=== PATIENT | male | born 1980 | race Caucasian/White ===

== ENCOUNTER 2016-10-11 21:42 | Emergency (ER) | payer MEDICARE ==
[2016-10-11] MEDS ORDERED: SODIUM CHLORIDE 0.9% 1,000 ML IV STA ×2 (21:48→23:03)
[2016-10-11 21:52] VITALS: TEMP 98.7
[2016-10-11 21:59] VITALS: PULSE 97; RESP 18
--- NOTE | 2016-10-11 21:59 | ED ---
Overdose HPI - General Chief Complaint: Overdose Stated Complaint: Overdose Time Seen by Provider: 10/11/16 21:42 Source: patient, police, EMS, RN notes reviewed Mode of arrival: EMS Limitations: no limitations - History of Present Illness Initial Comments: This is a 36-year-old male with a history of prescription drug abuse who normally inhales the medication that he crushes up into his nose who apparently did the same thing tonight with an unknown medication he was found unresponsive and cyanotic at neck. He was resuscitated IV was given the patient was given a total of 6 mg of Narcan and he did finally wake up. Initially was normotensive found be hypertensive shortly after the Narcan was given. He complains of a headache and nausea vomiting. He states she's never had a reaction like this before was not intentional. He denies using any heroin. He was brought in for evaluation by EMS. MD Complaint: accidental overdose - Related Data Home Medications Medication Instructions Recorded Confirmed QUEtiapine FUMARATE [SEROquel] 100 mg PO DAILY 10/11/16 10/11/16 carBAMazepine [carBAMazepine ER] 100 mg PO DAILY 10/11/16 10/11/16 Allergies Allergy/AdvReac Type Severity Reaction Status Date / Time ziprasidone HCl [From Geodon] AdvReac Unknown Verified 10/11/16 21:52 ziprasidone mesylate AdvReac Unknown Verified 10/11/16 21:52 [From Geodon] Review of Systems ROS Statement: Those systems with pertinent positive or pertinent negative responses have been documented in the HPI. ROS Other: All systems not noted in ROS Statement are negative. Past Medical History Past Medical History: No Reported History Additional Past Medical History / Comment(s): Schizoaffective disorder, bipolar; History of Any Multi-Drug Resistant Organisms: None Reported Past Surgical History: No Surgical Hx Reported Additional Past Surgical History / Comment(s): UNABLE TO OBTAIN, PT NONRESPONSIVE Past Psychological History: Bipolar, Depression, PTSD, Schizoaffective Disorder Smoking Status: Current every day smoker Past Alcohol Use History: Abuse Additional Past Alcohol Use History / Comment(s): Patient is a smoker of one pack per day since he was 20 years of age. He states he uses marijuana every other day. He also uses heroin because his uses heroin. He states he snorted and does not use IV. He also admits to drinking 3 pops or 3 large coffees per day. His also been in and out of long-term. He does not have any children. Past Drug Use History: Marijuana, Opiates Additional Drug Use History / Comment(s): marijuana - Past Family History Father Additional Family Medical History / Comment(s): Father is alive at age 58 with no major medical problems. Mother Additional Family Medical History / Comment(s): Mother is alive in her early 60s with history of paranoid schizophrenia. Brother(s) Additional Family Medical History / Comment(s): He has 5 brothers and one is in snf. He does not know their medical problems. Sister(s) Additional Family Medical History / Comment(s): Patient has 2 stepsisters and one adopted sister. He does not have any children. General Exam - General Exam Comments Initial Comments: This is a well-developed well-nourished awake alert male who was vomiting upon arrival. Limitations: no limitations General appearance: alert, anxious, in distress Head exam: Present: atraumatic, normocephalic, normal inspection Eye exam: Present: normal appearance, PERRL, EOMI. Absent: scleral icterus, conjunctival injection, periorbital swelling ENT exam: Present: mucous membranes moist, other (Nasal mucosa is boggy with clear drainage noted. No evidence of any bleeding.) Neck exam: Present: normal inspection. Absent: tenderness, meningismus, lymphadenopathy Respiratory exam: Present: normal lung sounds bilaterally. Absent: respiratory distress, wheezes, rales, rhonchi, stridor Cardiovascular Exam: Present: regular rate, normal rhythm, normal heart sounds. Absent: systolic murmur, diastolic murmur, rubs, gallop, clicks GI/Abdominal exam: Present: soft, normal bowel sounds. Absent: distended, tenderness, guarding, rebound, rigid Extremities exam: Present: normal inspection, full ROM, normal capillary refill. Absent: tenderness, pedal edema, joint swelling, calf tenderness Back exam: Present: normal inspection Neurological exam: Present: alert, oriented X3, CN II-XII intact Psychiatric exam: Present: anxious Skin exam: Present: warm, intact, normal color, diaphoretic. Absent: rash Course Vital Signs 10/11/16 10/11/16 21:48 21:52 Temperature 98.7 F Pulse Rate 90 97 Respiratory 20 18 Rate Blood Pressure 126/82 O2 Sat by Pulse 94 L 95 Oximetry Medical Decision Making - Medical Decision Making I did a long discussion with patient regarding the findings and the need to stop smoking we 3.2 minute conversation regarding the risks of smoking. Also the risks of drug abuse and narcotic abuse. The patient was apneic and cyanotic upon discovery by EMS. Patient will be discharged after IV fluids. He also does state that he was drinking alcohol recently. He was cautioned to avoid that - Lab Data Result diagrams: 10/11/16 21:55 10/11/16 21:55 Lab Results 10/11/16 10/11/16 10/11/16 Range/Units 21:55 21:55 21:55 WBC 8.5 (3.8-10.6) k/uL RBC 4.79 (4.30-5.90) m/uL Hgb 14.2 (13.0-17.5) gm/dL Hct 44.3 (39.0-53.0) % MCV 92.5 (80.0-100.0) fL MCH 29.7 (25.0-35.0) pg MCHC 32.1 (31.0-37.0) g/dL RDW 12.6 (11.5-15.5) % Plt Count 231 (150-450) k/uL Neutrophils % 69 % Lymphocytes % 24 % Monocytes % 5 % Eosinophils % 1 % Basophils % 0 % Neutrophils # 5.9 (1.3-7.7) k/uL Lymphocytes # 2.0 (1.0-4.8) k/uL Monocytes # 0.4 (0-1.0) k/uL Eosinophils # 0.1 (0-0.7) k/uL Basophils # 0.0 (0-0.2) k/uL Sodium 140 (137-145) mmol/L Potassium 4.4 (3.5-5.1) mmol/L Chloride 101 (98-107) mmol/L Carbon Dioxide 23 (22-30) mmol/L Anion Gap 16 mmol/L BUN 14 (9-20) mg/dL Creatinine 0.82 (0.66-1.25) mg/dL Est GFR (MDRD) Af Amer >60 (>60 ml/min/1.73 sqM) Est GFR (MDRD) Non-Af >60 (>60 ml/min/1.73 sqM) Glucose 170 H (74-99) mg/dL Calcium 8.9 (8.4-10.2) mg/dL Magnesium 1.9 (1.6-2.3) mg/dL Total Bilirubin 0.5 (0.2-1.3) mg/dL AST 23 (17-59) U/L ALT 47 (21-72) U/L Alkaline Phosphatase 74 (38-126) U/L Total Creatine Kinase 101 (55-170) U/L CK-MB (CK-2) 0.5 (0.0-2.4) ng/mL CK-MB (CK-2) Rel Index 0.5 Troponin I <0.012 (0.000-0.034) ng/mL Total Protein 7.1 (6.3-8.2) g/dL Albumin 4.4 (3.5-5.0) g/dL Amylase 90 (30-110) U/L Lipase 816 H (23-300) U/L Salicylates <1.0 mg/dL Urine Opiates Screen (NotDetected) Ur Oxycodone Screen (NotDetected) Urine Methadone Screen (NotDetected) Ur Propoxyphene Screen (NotDetected) Acetaminophen <10.0 ug/mL Ur Barbiturates Screen (NotDetected) U Tricyclic Antidepress (NotDetected) Ur Phencyclidine Scrn (NotDetected) Ur Amphetamines Screen (NotDetected) U Methamphetamines Scrn (NotDetected) U Benzodiazepines Scrn (NotDetected) Urine Cocaine Screen (NotDetected) U Marijuana (THC) Screen (NotDetected) Serum Alcohol <10 mg/dL 10/11/16 Range/Units 22:00 WBC (3.8-10.6) k/uL RBC (4.30-5.90) m/uL Hgb (13.0-17.5) gm/dL Hct (39.0-53.0) % MCV (80.0-100.0) fL MCH (25.0-35.0) pg MCHC (31.0-37.0) g/dL RDW (11.5-15.5) % Plt Count (150-450) k/uL Neutrophils % % Lymphocytes % % Monocytes % % Eosinophils % % Basophils % % Neutrophils # (1.3-7.7) k/uL Lymphocytes # (1.0-4.8) k/uL Monocytes # (0-1.0) k/uL Eosinophils # (0-0.7) k/uL Basophils # (0-0.2) k/uL Sodium (137-145) mmol/L Potassium (3.5-5.1) mmol/L Chloride (98-107) mmol/L Carbon Dioxide (22-30) mmol/L Anion Gap mmol/L BUN (9-20) mg/dL Creatinine (0.66-1.25) mg/dL Est GFR (MDRD) Af Amer (>60 ml/min/1.73 sqM) Est GFR (MDRD) Non-Af (>60 ml/min/1.73 sqM) Glucose (74-99) mg/dL Calcium (8.4-10.2) mg/dL Magnesium (1.6-2.3) mg/dL Total Bilirubin (0.2-1.3) mg/dL AST (17-59) U/L ALT (21-72) U/L Alkaline Phosphatase (38-126) U/L Total Creatine Kinase (55-170) U/L CK-MB (CK-2) (0.0-2.4) ng/mL CK-MB (CK-2) Rel Index Troponin I (0.000-0.034) ng/mL Total Protein (6.3-8.2) g/dL Albumin (3.5-5.0) g/dL Amylase (30-110) U/L Lipase (23-300) U/L Salicylates mg/dL Urine Opiates Screen Detected H (NotDetected) Ur Oxycodone Screen Not Detected (NotDetected) Urine Methadone Screen Not Detected (NotDetected) Ur Propoxyphene Screen Not Detected (NotDetected) Acetaminophen ug/mL Ur Barbiturates Screen Not Detected (NotDetected) U Tricyclic Antidepress Not Detected (NotDetected) Ur Phencyclidine Scrn Not Detected (NotDetected) Ur Amphetamines Screen Not Detected (NotDetected) U Methamphetamines Scrn Not Detected (NotDetected) U Benzodiazepines Scrn Not Detected (NotDetected) Urine Cocaine Screen Not Detected (NotDetected) U Marijuana (THC) Screen Detected H (NotDetected) Serum Alcohol mg/dL - EKG Data -: EKG Interpreted by Me EKG shows normal: sinus rhythm, axis, intervals, QRS complexes, ST-T waves (EKG shows normal sinus rhythm of 91 a IN interval 138 QRS duration 82 daily since QTC of 356/[address]-T wave changes.) Rate: normal - Radiology Data Radiology results: report reviewed (X-ray show evidence of some increased markings no focal consolidations), image reviewed Disposition Clinical Impression: Drug overdose, Narcotic abuse, Smoking, Pancreatitis, Near- experience Disposition: HOME SELF-CARE Condition: Good Instructions: Narcotic Abuse (ED), How to Stop Smoking (ED), Pancreatitis (ED) Additional Instructions: Stop narcotic use stop smoking and stop alcohol use.
[2016-10-11 22:05] LABS: Basophils % (A) 0 %; CH 30.9; CHCM 33.6; Eosinophils # (A) 0.1 k/uL (0-0.7); Eosinophils % (A) 1 %; HCT 44.3 % (39.0-53.0); HDW 2.57; HGB 14.2 gm/dL (13.0-17.5); Luc # (Auto) 0.12; Luc % (Auto) 1; Lymphocytes % (A) 24 %; MCH 29.7 pg (25.0-35.0); MCHC 32.1 g/dL (31.0-37.0); MCV 92.5 fL (80.0-100.0); Mean Platelet Volume 7.1; Monocytes # (A) 0.4 k/uL (0-1.0); Monocytes % (A) 5 %; Neutrophils # (A) 5.9 k/uL (1.3-7.7); Neutrophils % (A) 69 %; RBC 4.79 m/uL (4.30-5.90); RDW 12.6 % (11.5-15.5); WBC 8.5 k/uL (3.8-10.6); WBC (Perox) 8.32
[2016-10-11 22:16] LABS: ALT 47 U/L (21-72); AST 23 U/L (17-59); Acetaminophen <10.0 ug/mL; Alcohol <10 mg/dL; Alkaline Phosphatase 74 U/L (38-126); Amylase 90 U/L (30-110); Anion Gap 16 mmol/L; Blood Urea Nitrogen 14 mg/dL (9-20); Calcium 8.9 mg/dL (8.4-10.2); Carbon Dioxide 23 mmol/L (22-30); Chloride 101 mmol/L (98-107); Glucose 170 mg/dL (74-99); Magnesium 1.9 mg/dL (1.6-2.3); Non-African American GFR(MDRD) >60 (>60 ml/min/1.73 sqM); Potassium 4.4 mmol/L (3.5-5.1); Salicylate <1.0 mg/dL; Sodium 140 mmol/L (137-145); Total Bilirubin 0.5 mg/dL (0.2-1.3); Total Protein 7.1 g/dL (6.3-8.2)
--- NOTE | 2016-10-11 22:19 | XR ---
EXAMINATION TYPE: XR chest 2V DATE OF EXAM: 10/11/2016 10:12 PM COMPARISON: 02/10/2014 HISTORY: Cough and short of breath TECHNIQUE: Frontal and lateral views of the chest are obtained. FINDINGS: There is no heart failure nor confluent pneumonic infiltrate. There is slight coarsening o f interstitial markings. There are no hilar masses. There are probably small calcified granulomata at the pulmonary yessenia. There is no pleural effusion. IMPRESSION: Lung markings are increased slightly compared to old exam and this could relate to minim al interstitial pneumonia. No pulmonary consolidation.
[2016-10-11 22:32] LABS: Creatine Kinase 101 U/L (55-170)
[2016-10-11 22:44] LABS: Creatine Kinase MB 0.5 ng/mL (0.0-2.4); Troponin I <0.012 ng/mL (0.000-0.034)
[2016-10-11 23:41] VITALS: BP 126/72
== END 2016-10-12 00:21 | disposition home or self-care (01) ==
LOC: EC 21:42
DX: T50.901A Poisoning by unspecified drugs, medicaments and biological substances, accidental (unintentional), initial encounter (principal); F11.10 Opioid abuse, uncomplicated; F12.90 Cannabis use, unspecified, uncomplicated; K85.90 Acute pancreatitis without necrosis or infection, unspecified; F17.200 Nicotine dependence, unspecified, uncomplicated; Z88.8 Allergy status to other drugs, medicaments and biological substances; F31.9 Bipolar disorder, unspecified; F25.9 Schizoaffective disorder, unspecified
CPT/HCPCS: 36415; 71020; 80053; 80306; 80320; 82150; 82550; 82553; 83520; 83690; 83735; 84484; 85025; 93005; 96360; 96361; 99284

== ENCOUNTER 2016-12-15 03:45 | Emergency (ER) | payer SELFPAY ==
[2016-12-15 03:50] VITALS: BP 126/87; PULSE 95; RESP 18; TEMP 96.3
[2016-12-15] MEDS ORDERED: PALIPERIDONE 6 MG TAB.ER.24 PO STA (03:58)
--- NOTE | 2016-12-15 04:23 | ED ---
Psych HPI - General Chief Complaint: Recheck/Abnormal Lab/Rx Stated Complaint: med refill Time Seen by Provider: 12/15/16 03:58 Source: patient Mode of arrival: ambulatory - History of Present Illness Initial Comments: This patient is a 36-year-old man with history of previous mood disorder. He states that his symptoms have been flaring up, including having anxiety and not being able sleep well. Patient states that he had not been able to get his medications as an outpatient and he is requesting help much receive these. MD Complaint: other (Anxiety and insomnia) -: days(s) Associated Psychiatric Symptoms: racing thoughts History of same: Yes Quality: constant Improves With: none Worsens With: none Context: not taking psychiatric medications Associated Symptoms: denies other symptoms - Related Data Home Medications Medication Instructions Recorded Confirmed Ibuprofen [Motrin] 800 mg PO DAILY PRN 12/28/16 12/28/16 Allergies Allergy/AdvReac Type Severity Reaction Status Date / Time ziprasidone HCl [From Twineddon] AdvReac Unknown Verified 12/23/16 07:39 ziprasidone mesylate AdvReac Unknown Verified 12/23/16 07:39 [From Twineddon] Review of Systems ROS Statement: Those systems with pertinent positive or pertinent negative responses have been documented in the HPI. ROS Other: All systems not noted in ROS Statement are negative. Constitutional: Denies: fever, chills, weakness Eyes: Denies: vision change Respiratory: Denies: cough, dyspnea Cardiovascular: Denies: chest pain Gastrointestinal: Denies: abdominal pain, nausea, vomiting Musculoskeletal: Denies: back pain Skin: Denies: rash Neurological: Denies: headache Psychiatric: Reports: anxiety. Denies: depression, homicidal thoughts, suicidal thoughts Past Medical History Past Medical History: No Reported History Additional Past Medical History / Comment(s): Schizoaffective disorder, bipolar; History of Any Multi-Drug Resistant Organisms: None Reported Past Surgical History: No Surgical Hx Reported Additional Past Surgical History / Comment(s): UNABLE TO OBTAIN, PT NONRESPONSIVE Past Psychological History: Bipolar, Depression, PTSD, Schizoaffective Disorder Smoking Status: Current every day smoker Past Alcohol Use History: Abuse Additional Past Alcohol Use History / Comment(s): Patient is a smoker of one pack per day since he was 20 years of age. He states he uses marijuana every other day. He also uses heroin because his uses heroin. He states he snorted and does not use IV. He also admits to drinking 3 pops or 3 large coffees per day. His also been in and out of shelter. He does not have any children. Past Drug Use History: Marijuana, Opiates Additional Drug Use History / Comment(s): marijuana - Past Family History Father Additional Family Medical History / Comment(s): Father is alive at age 58 with no major medical problems. Mother Additional Family Medical History / Comment(s): Mother is alive in her early 60s with history of paranoid schizophrenia. Brother(s) Additional Family Medical History / Comment(s): He has 5 brothers and one is in retirement. He does not know their medical problems. Sister(s) Additional Family Medical History / Comment(s): Patient has 2 stepsisters and one adopted sister. He does not have any children. General Exam Limitations: no limitations General appearance: alert, in no apparent distress Head exam: Present: atraumatic, normocephalic Respiratory exam: Present: normal lung sounds bilaterally. Absent: respiratory distress, wheezes, rales, rhonchi Cardiovascular Exam: Present: regular rate, normal rhythm, normal heart sounds. Absent: systolic murmur, diastolic murmur, rubs, gallop Neurological exam: Present: alert, normal gait Psychiatric exam: Present: anxious. Absent: depressed, agitated, flat affect, homicidal ideation, suicidal ideation Skin exam: Present: warm, dry, intact, normal color. Absent: rash Course Vital Signs 12/15/16 03:48 Temperature 96.3 F L Pulse Rate 95 Respiratory 18 Rate Blood Pressure 126/87 O2 Sat by Pulse 98 Oximetry Disposition Clinical Impression: Encounter for medication refill Disposition: HOME SELF-CARE Condition: Fair Instructions: Mood Disorders (ED) Referrals: Nonstaff,Physician [Primary Care Provider] - 1-2 days Olaf Orantes MD [STAFF PHYSICIAN] - 1-2 days
== END 2016-12-15 04:27 | disposition home or self-care (01) ==
LOC: EC 03:45
DX: Z76.0 Encounter for issue of repeat prescription (principal); F17.200 Nicotine dependence, unspecified, uncomplicated; Z88.8 Allergy status to other drugs, medicaments and biological substances
CPT/HCPCS: 99281

== ENCOUNTER 2016-12-17 07:47 | Emergency (ER) | payer SELFPAY ==
[2016-12-17 08:01] VITALS: BP 131/78; PULSE 92; RESP 20; TEMP 98.1
[2016-12-17] MEDS ORDERED: PALIPERIDONE 6 MG TAB.ER.24 PO STA (09:13)
[2016-12-17] MEDS ORDERED: LORazepam 1 MG TAB PO STA (09:13)
--- NOTE | 2016-12-17 09:24 | ED ---
General Adult HPI - General Chief complaint: Recheck/Abnormal Lab/Rx Stated complaint: med refill Time Seen by Provider: 12/17/16 08:08 Source: patient, RN notes reviewed Mode of arrival: ambulatory - History of Present Illness Initial comments: Patient 36-year-old male with a significant past medical history for bipolar, who presents emergency room today with chief complaint of needing medication refill. Patient does admit that he was recently discharged from [facility]. He does admit that he did drop medications off at the pharmacy but has not picked him up. He states he's been trying to go to work clinic that has the Invega shot. He states that he [facility] did not have. They're advised him to go downtown [place]. He states he did not have a ride to go there. Patient states is not get the medications filled. Patient also requesting a prescription for Haldol. States he would like Ativan for his anxiety. Patient denies any other complaints. Patient denies any recent fever, chills, shortness of breath, chest pain, back pain, abdominal pain, nausea or vomiting, numbness or tingling, dysuria or hematuria, constipation or diarrhea, headaches or visual changes, or any other complaints. - Related Data Previous Rx's Medication Instructions Recorded Melatonin 5 mg PO HS 30 Days 12/09/16 Paliperidone IM [Invega Sustenna] 156 mg IM ONCE #1 syr 12/09/16 Paliperidone [Invega] 6 mg PO DAILY 7 Days 12/09/16 traZODone HCL [Desyrel] 50 mg PO HS PRN 30 Days 12/09/16 Allergies Allergy/AdvReac Type Severity Reaction Status Date / Time ziprasidone HCl [From Geodon] AdvReac Unknown Verified 12/15/16 03:50 ziprasidone mesylate AdvReac Unknown Verified 12/15/16 03:50 [From Geodon] Review of Systems ROS Statement: Those systems with pertinent positive or pertinent negative responses have been documented in the HPI. ROS Other: All systems not noted in ROS Statement are negative. Past Medical History Past Medical History: No Reported History Additional Past Medical History / Comment(s): Schizoaffective disorder, bipolar; History of Any Multi-Drug Resistant Organisms: None Reported Past Surgical History: No Surgical Hx Reported Additional Past Surgical History / Comment(s): UNABLE TO OBTAIN, PT NONRESPONSIVE Past Psychological History: Bipolar, Depression, PTSD, Schizoaffective Disorder Smoking Status: Current every day smoker Past Alcohol Use History: Abuse Additional Past Alcohol Use History / Comment(s): Patient is a smoker of one pack per day since he was 20 years of age. He states he uses marijuana every other day. He also uses heroin because his uses heroin. He states he snorted and does not use IV. He also admits to drinking 3 pops or 3 large coffees per day. His also been in and out of alf. He does not have any children. Past Drug Use History: Marijuana, Opiates Additional Drug Use History / Comment(s): marijuana - Past Family History Father Additional Family Medical History / Comment(s): Father is alive at age 58 with no major medical problems. Mother Additional Family Medical History / Comment(s): Mother is alive in her early 60s with history of paranoid schizophrenia. Brother(s) Additional Family Medical History / Comment(s): He has 5 brothers and one is in shelter. He does not know their medical problems. Sister(s) Additional Family Medical History / Comment(s): Patient has 2 stepsisters and one adopted sister. He does not have any children. General Exam - General Exam Comments Initial Comments: General: The patient is awake and alert, in no distress, and does not appear acutely ill. Eye: Pupils are equal, round and reactive to light, extra-ocular movements are intact. No nystagmus. There is normal conjunctiva bilaterally. No signs of icterus. Ears, nose, mouth and throat: There are moist mucous membranes and no oral lesions. Neck: The neck is supple, there is no tenderness or JVD. Cardiovascular: There is a regular rate and rhythm. No murmur, rub or gallop is appreciated. Respiratory: Lungs are clear to auscultation, respirations are non-labored, breath sounds are equal. No wheezes, stridor, rales, or rhonchi. Musculoskeletal: Normal ROM, no tenderness. Strength 5/5. Sensation intact. Pulses equal bilaterally 2+. Neurological: A&O x 3. CN II-XII intact, There are no obvious motor or sensory deficits. Coordination appears grossly intact. Speech is normal. Skin: Skin is warm and dry and no rashes or lesions are noted. Psychiatric: Cooperative, appropriate mood & affect, normal judgment. Course Vital Signs 12/17/16 07:53 Temperature 98.1 F Pulse Rate 92 Respiratory 20 Rate Blood Pressure 131/78 O2 Sat by Pulse 98 Oximetry Medical Decision Making - Medical Decision Making Patient's recent visit was reviewed and he was discharged home with him melatonin, trazodone, Invega. Patient states he has medications at the pharmacy but did not come up. He states he thought he needed prescriptions for Haldol with Cogentin. Patient was not discharged home with these. At this time patient's advised follow-up with mental health for any other medications. Will be given a dose of his Invega here in the ER. He states he has a prescription. Patient advised follow-up with mental health. Disposition Clinical Impression: Medication refill Disposition: HOME SELF-CARE Condition: Good Instructions: Medicine Refill (ED) Additional Instructions: [facility] follow-[facility] Please return to emergency room if any symptoms increase worsen or for any other concerns. Time of Disposition: 09:23
== END 2016-12-17 09:33 | disposition home or self-care (01) ==
LOC: EC 07:47
DX: Z76.0 Encounter for issue of repeat prescription (principal); F31.9 Bipolar disorder, unspecified; F41.9 Anxiety disorder, unspecified; F17.200 Nicotine dependence, unspecified, uncomplicated; Z88.8 Allergy status to other drugs, medicaments and biological substances
CPT/HCPCS: 99282

== ENCOUNTER 2016-12-20 00:26 | Emergency (ER) | payer SELFPAY ==
[2016-12-20 01:03] VITALS: BP 140/73; PULSE 110; RESP 18; TEMP 97
[2016-12-20] MEDS ORDERED: IBUPROFEN 600 MG STARTER PACK 4 TAB BTL PO STA (04:16)
[2016-12-20] MEDS ORDERED: ACETAMINOPHEN TAB 500 MG TAB PO STA (04:16)
--- NOTE | 2016-12-20 04:18 | ED ---
Recheck HPI - General Chief Complaint: Recheck/Abnormal Lab/Rx Stated Complaint: Med Refill/Mental Health Time Seen by Provider: 12/20/16 03:26 Source: patient, RN notes reviewed, old records reviewed Mode of arrival: ambulatory Limitations: no limitations - History of Present Illness Initial Comments: Patient is a 36 year old male with chief complaiint of med refill. PAtient request refill of ativan, norco, and invega. Patient has been to the ED yesterday morning for the same thing, but decided to leave before he could be seen. Patient reports he sees Dr. Baez for his invega. Patient was given recent refill of invega by ED physician a few days ago. States he has chronic disability, and [facility]. Patient reports he has a history of bipolar and has an appointment for his psychiatrist soon. - Related Data Previous Rx's Medication Instructions Recorded Melatonin 5 mg PO HS 30 Days 12/09/16 Paliperidone IM [Invega Sustenna] 156 mg IM ONCE #1 syr 12/09/16 Paliperidone [Invega] 6 mg PO DAILY 7 Days 12/09/16 traZODone HCL [Desyrel] 50 mg PO HS PRN 30 Days 12/09/16 Allergies Allergy/AdvReac Type Severity Reaction Status Date / Time ziprasidone HCl [From Geodon] AdvReac Unknown Verified 12/20/16 01:03 ziprasidone mesylate AdvReac Unknown Verified 12/20/16 01:03 [From Geodon] Review of Systems ROS Statement: Those systems with pertinent positive or pertinent negative responses have been documented in the HPI. ROS Other: All systems not noted in ROS Statement are negative. Past Medical History Past Medical History: No Reported History Additional Past Medical History / Comment(s): Schizoaffective disorder, bipolar; History of Any Multi-Drug Resistant Organisms: None Reported Past Surgical History: No Surgical Hx Reported Additional Past Surgical History / Comment(s): UNABLE TO OBTAIN, PT NONRESPONSIVE Past Psychological History: Bipolar, Depression, PTSD, Schizoaffective Disorder Smoking Status: Current every day smoker Past Alcohol Use History: Abuse Additional Past Alcohol Use History / Comment(s): Patient is a smoker of one pack per day since he was 20 years of age. He states he uses marijuana every other day. He also uses heroin because his uses heroin. He states he snorted and does not use IV. He also admits to drinking 3 pops or 3 large coffees per day. His also been in and out of group home. He does not have any children. Past Drug Use History: Marijuana, Opiates Additional Drug Use History / Comment(s): marijuana - Past Family History Father Additional Family Medical History / Comment(s): Father is alive at age 58 with no major medical problems. Mother Additional Family Medical History / Comment(s): Mother is alive in her early 60s with history of paranoid schizophrenia. Brother(s) Additional Family Medical History / Comment(s): He has 5 brothers and one is in detention. He does not know their medical problems. Sister(s) Additional Family Medical History / Comment(s): Patient has 2 stepsisters and one adopted sister. He does not have any children. General Exam - General Exam Comments Initial Comments: 36 year old male, no distress. Limitations: no limitations General appearance: alert, in no apparent distress Head exam: Present: atraumatic, normocephalic, normal inspection Eye exam: Present: normal appearance, PERRL, EOMI. Absent: scleral icterus, conjunctival injection, periorbital swelling ENT exam: Present: normal exam, mucous membranes moist Neck exam: Present: normal inspection. Absent: tenderness, meningismus, lymphadenopathy Respiratory exam: Present: normal lung sounds bilaterally. Absent: respiratory distress, wheezes, rales, rhonchi, stridor Cardiovascular Exam: Present: regular rate, normal rhythm, normal heart sounds. Absent: systolic murmur, diastolic murmur, rubs, gallop, clicks GI/Abdominal exam: Present: soft, normal bowel sounds. Absent: distended, tenderness, guarding, rebound, rigid Extremities exam: Present: normal inspection, full ROM, normal capillary refill. Absent: tenderness, pedal edema, joint swelling, calf tenderness Back exam: Present: normal inspection Neurological exam: Present: alert, oriented X3, CN II-XII intact Psychiatric exam: Present: normal affect, normal mood, anxious (patient states he is anxious. ) Skin exam: Present: warm, dry, intact, normal color. Absent: rash Course Vital Signs 12/20/16 01:01 Temperature 97.0 F L Pulse Rate 110 H Respiratory 18 Rate Blood Pressure 140/73 O2 Sat by Pulse 97 Oximetry Medical Decision Making - Medical Decision Making Patient is requesting refill for norco, ativan, and invega. Patient states that he has chronic shoulder pain. PAtient given motrin, tylenol for shoulder pain. Patient agrees to this, discussed I cannot continue to give patient pain medication scripts or ativan. PAtient reports he has to [facility], and agrees with treatment plan. Patient denies any suicidal or homicidal ideation, states that he is anxious. Discussed case with Dr. Johnson , he agrees that patient needs to follow up with outpatient services. Disposition Clinical Impression: Medication refill Disposition: HOME SELF-CARE Condition: Good Instructions: Medicine Refill (ED) Additional Instructions: Patient instructed to fill previous prescriptions for InVega. [facility] in [facility] to further [facility]. Call your outpatient psychiatrist. Referrals: Dixon Walton DO [Primary Care Provider] - 1-2 days Time of Disposition: 04:15
== END 2016-12-20 04:31 | disposition home or self-care (01) ==
LOC: EC 00:26
DX: Z76.0 Encounter for issue of repeat prescription (principal); F17.200 Nicotine dependence, unspecified, uncomplicated; Z88.8 Allergy status to other drugs, medicaments and biological substances
CPT/HCPCS: 99283

== ENCOUNTER 2016-12-20 18:58 | Emergency (ER) | payer SELFPAY ==
[2016-12-20 19:24] VITALS: BP 149/81; RESP 18; TEMP 98.6
--- NOTE | 2016-12-20 20:18 | ED ---
Psych HPI - General Chief Complaint: Psychiatric Symptoms Stated Complaint: Mental health Time Seen by Provider: 12/20/16 19:48 Source: patient Mode of arrival: ambulatory - History of Present Illness Initial Comments: This 36-year-old white male presents stating that he's been off his medications for the last 2 days. He does feel depressed and felt hopeless at times. He denies any suicidal ideations. He was here last night requesting and Viagra, [place], and Ativan. He is requesting similar today. He was instructed to follow -up with his psychiatrist but has not done so. He denies any alcohol today. Has been here quite frequently and apparently has a history of bipolar disorder. Is a history of drug abuse. No other complaints or modifying factors. - Related Data Previous Rx's Medication Instructions Recorded Melatonin 5 mg PO HS 30 Days 12/09/16 Paliperidone IM [Invega Sustenna] 156 mg IM ONCE #1 syr 12/09/16 Paliperidone [Invega] 6 mg PO DAILY 7 Days 12/09/16 traZODone HCL [Desyrel] 50 mg PO HS PRN 30 Days 12/09/16 Allergies Allergy/AdvReac Type Severity Reaction Status Date / Time ziprasidone HCl [From Geodon] AdvReac Unknown Verified 12/20/16 01:03 ziprasidone mesylate AdvReac Unknown Verified 12/20/16 01:03 [From Geodon] Review of Systems ROS Statement: Those systems with pertinent positive or pertinent negative responses have been documented in the HPI. ROS Other: All systems not noted in ROS Statement are negative. Past Medical History Past Medical History: No Reported History Additional Past Medical History / Comment(s): Schizoaffective disorder, bipolar; History of Any Multi-Drug Resistant Organisms: None Reported Past Surgical History: No Surgical Hx Reported Additional Past Surgical History / Comment(s): UNABLE TO OBTAIN, PT NONRESPONSIVE Past Psychological History: Bipolar, Depression, PTSD, Schizoaffective Disorder Smoking Status: Current every day smoker Past Alcohol Use History: Abuse Additional Past Alcohol Use History / Comment(s): Patient is a smoker of one pack per day since he was 20 years of age. He states he uses marijuana every other day. He also uses heroin because his uses heroin. He states he snorted and does not use IV. He also admits to drinking 3 pops or 3 large coffees per day. His also been in and out of shelter. He does not have any children. Past Drug Use History: Marijuana, Opiates Additional Drug Use History / Comment(s): marijuana - Past Family History Father Additional Family Medical History / Comment(s): Father is alive at age 58 with no major medical problems. Mother Additional Family Medical History / Comment(s): Mother is alive in her early 60s with history of paranoid schizophrenia. Brother(s) Additional Family Medical History / Comment(s): He has 5 brothers and one is in fpc. He does not know their medical problems. Sister(s) Additional Family Medical History / Comment(s): Patient has 2 stepsisters and one adopted sister. He does not have any children. General Exam - General Exam Comments Initial Comments: GENERAL: The patient is well nourished and well hydrated. VITAL SIGNS: Heart rate, blood pressure, respiratory rate reviewed as recorded in nurse's notes. EYES: Pupils are round and reactive. Extraocular movements are intact. No conjunctival / lid redness or swelling. ENT: No external evidence of injury, swelling, or ecchymosis. Airway is patent. Throat is clear. NECK: Nontender. No swelling or evidence of injury. No subcutaneous emphysema. Trachea is midline. No thyroid mass. HEART: Regular rate and rhythm. Good peripheral pulses. LUNGS/CHEST: Breath sounds clear and equal bilaterally. No rales, rhonchi, or wheezes. No ecchymosis, subcutaneous emphysema, or tenderness. ABDOMEN: Abdomen soft without tenderness. No palpable masses or organomegaly. No peritoneal signs. No abdominal wall swelling or ecchymosis. EXTREMITIES: No extremity tenderness. Normal muscle tone and function. No thoracolumbar tenderness. NEUROLOGIC: Sensation is grossly intact. Cranial nerve exam reveals face is symmetrical, tongue is midline, speech is clear. SKIN: No abrasions or ecchymosis is noted. No induration or masses noted. PSYCHIATRIC: Alert and oriented. Appropriate behavior and judgment. Limitations: no limitations Course Vital Signs 12/20/16 19:20 Temperature 98.6 F Pulse Rate 102 H Respiratory 18 Rate Blood Pressure 149/81 O2 Sat by Pulse 97 Oximetry Medical Decision Making - Medical Decision Making The patient was seen and examined. All diagnostics were reviewed. It is felt as though is medically cleared for further psychiatric evaluation. The psychiatric team did evaluate him in the emergency department and feels as though he is stable for discharge. He apparently has been having problems following up with his doctor through the [facility] [place]. They were able to assure that he has a ride to his doctor tomorrow. Is felt that he is stable for discharge and leaves in no identifiable distress. He is quite conversive with multiple staff members throughout his stay. He is happy and does not appear to be in any significant psychiatric distress. No refills of his medications are given at this time. - Lab Data Lab Results 12/20/16 Range/Units 19:12 Urine Opiates Screen Not Detected (NotDetected) Ur Oxycodone Screen Not Detected (NotDetected) Urine Methadone Screen Not Detected (NotDetected) Ur Propoxyphene Screen Not Detected (NotDetected) Ur Barbiturates Screen Not Detected (NotDetected) U Tricyclic Antidepress Not Detected (NotDetected) Ur Phencyclidine Scrn Not Detected (NotDetected) Ur Amphetamines Screen Not Detected (NotDetected) U Methamphetamines Scrn Not Detected (NotDetected) U Benzodiazepines Scrn Detected H (NotDetected) Urine Cocaine Screen Not Detected (NotDetected) U Marijuana (THC) Screen Detected H (NotDetected) Disposition Clinical Impression: Depression Disposition: HOME SELF-CARE Condition: Fair Instructions: Depression (ED) Referrals: Dixon Walton DO [Primary Care Provider] - 1-2 days Time of Disposition: 22:17
[2016-12-20 22:26] VITALS: PULSE 88
== END 2016-12-20 22:35 | disposition home or self-care (01) ==
LOC: EC 18:58
DX: F31.9 Bipolar disorder, unspecified (principal); F25.9 Schizoaffective disorder, unspecified; F43.10 Post-traumatic stress disorder, unspecified; F17.200 Nicotine dependence, unspecified, uncomplicated; Z88.8 Allergy status to other drugs, medicaments and biological substances; Z81.8 Family history of other mental and behavioral disorders
CPT/HCPCS: 80306; 82075; 99284

== ENCOUNTER 2016-12-22 22:53 | Emergency (ER) | payer OTHER ==
[2016-12-22 23:19] VITALS: BP 137/86; PULSE 108; RESP 18; TEMP 98.1
--- NOTE | 2016-12-23 00:51 | ED ---
General Adult HPI - General Chief complaint: Psychiatric Symptoms Stated complaint: med refill Time Seen by Provider: 12/23/16 00:26 Source: patient, RN notes reviewed Mode of arrival: ambulatory Limitations: no limitations - History of Present Illness Initial comments: Patient is a 36-year-old male presents to the emergency room for medication refill. Patient states he needs a [place], Ativan and Invega. Patient states recently got out of [facility] and does not have any of his medications. Patient states that he followed up with [facility] today and they did not give him any medications. Patient states he is not suicidal. Patient states he is not homicidal. Patient denies visual or auditory hallucinations. - Related Data Previous Rx's Medication Instructions Recorded Melatonin 5 mg PO HS 30 Days 12/09/16 Paliperidone IM [Invega Sustenna] 156 mg IM ONCE #1 syr 12/09/16 Paliperidone [Invega] 6 mg PO DAILY 7 Days 12/09/16 traZODone HCL [Desyrel] 50 mg PO HS PRN 30 Days 12/09/16 Allergies Allergy/AdvReac Type Severity Reaction Status Date / Time ziprasidone HCl [From Geodon] AdvReac Unknown Verified 12/22/16 23:13 ziprasidone mesylate AdvReac Unknown Verified 12/22/16 23:13 [From Geodon] Review of Systems ROS Statement: Those systems with pertinent positive or pertinent negative responses have been documented in the HPI. ROS Other: All systems not noted in ROS Statement are negative. Past Medical History Past Medical History: No Reported History Additional Past Medical History / Comment(s): Schizoaffective disorder, bipolar; History of Any Multi-Drug Resistant Organisms: None Reported Past Surgical History: No Surgical Hx Reported Additional Past Surgical History / Comment(s): UNABLE TO OBTAIN, PT NONRESPONSIVE Past Psychological History: Bipolar, Depression, PTSD, Schizoaffective Disorder Smoking Status: Current every day smoker Past Alcohol Use History: Abuse Additional Past Alcohol Use History / Comment(s): Patient is a smoker of one pack per day since he was 20 years of age. He states he uses marijuana every other day. He also uses heroin because his uses heroin. He states he snorted and does not use IV. He also admits to drinking 3 pops or 3 large coffees per day. His also been in and out of halfway. He does not have any children. Past Drug Use History: Marijuana, Opiates Additional Drug Use History / Comment(s): marijuana - Past Family History Father Additional Family Medical History / Comment(s): Father is alive at age 58 with no major medical problems. Mother Additional Family Medical History / Comment(s): Mother is alive in her early 60s with history of paranoid schizophrenia. Brother(s) Additional Family Medical History / Comment(s): He has 5 brothers and one is in long term. He does not know their medical problems. Sister(s) Additional Family Medical History / Comment(s): Patient has 2 stepsisters and one adopted sister. He does not have any children. General Exam - General Exam Comments Initial Comments: Sitting in exam room, no acute distress. Limitations: no limitations General appearance: alert, in no apparent distress Head exam: Present: atraumatic, normocephalic, normal inspection Eye exam: Present: normal appearance ENT exam: Present: normal exam Neck exam: Present: normal inspection Respiratory exam: Present: normal lung sounds bilaterally. Absent: respiratory distress Cardiovascular Exam: Present: regular rate, normal rhythm, normal heart sounds Extremities exam: Present: normal inspection Back exam: Present: normal inspection Neurological exam: Present: alert, oriented X3, CN II-XII intact, normal gait Psychiatric exam: Present: normal affect, normal mood Skin exam: Present: warm, dry, intact, normal color. Absent: rash Course Vital Signs 12/22/16 23:14 Temperature 98.1 F Pulse Rate 108 H Respiratory 18 Rate Blood Pressure 137/86 O2 Sat by Pulse 98 Oximetry Medical Decision Making - Medical Decision Making Patient is a 36-year-old male well-known to the emergency room presents emergency room requesting for a prescription of [place], Ativan and Invega. Patient denies suicidal ideations. Patient states that times he feels hopeless. Patient is laughing and joking around with staff and other patients. Patient appears to be in high spirits. Explained to patient needs follow-up with his primary care provider for any of the medications that he requests. Patient is in no psychiatric distress. Patient repeated to me that he is not suicidal. Patient will be sent home and advised follow-up with his primary care provider and [facility]. Return parameters discussed. Case discussed Dr. Servin. Disposition Clinical Impression: Depression, Medication refill Disposition: HOME SELF-CARE Condition: Good Instructions: Depression (ED) Additional Instructions: Please follow up with primary care provider or [facility]. If any new symptom arises or symptoms worsen, return to ER as soon as possible. Referrals: Dixon Walton DO [Primary Care Provider] - 1-2 days Time of Disposition: 00:51
== END 2016-12-23 01:10 | disposition home or self-care (01) ==
LOC: EC 22:53
DX: F32.9 Major depressive disorder, single episode, unspecified (principal); Z76.0 Encounter for issue of repeat prescription; F17.200 Nicotine dependence, unspecified, uncomplicated; Z88.8 Allergy status to other drugs, medicaments and biological substances
CPT/HCPCS: 99282

== ENCOUNTER 2016-12-23 07:16 | Emergency (ER) | payer MEDICARE, OTHER ==
--- NOTE | 2016-12-23 07:56 | ED ---
General Adult HPI - General Chief complaint: Psychiatric Symptoms Stated complaint: petitioned Time Seen by Provider: 12/23/16 07:41 Source: patient, RN notes reviewed Mode of arrival: ambulatory Limitations: no limitations - History of Present Illness Initial comments: Patient is a 36-year-old male presenting to the emergency department with police escort. Patient states he is just here to take his medications. Patient has no complaints. Patient admits to being here recently. Patient is purposefully not answering questions appropriately. - Related Data Previous Rx's Medication Instructions Recorded Melatonin 5 mg PO HS 30 Days 12/09/16 Paliperidone IM [Invega Sustenna] 156 mg IM ONCE #1 syr 12/09/16 Paliperidone [Invega] 6 mg PO DAILY 7 Days 12/09/16 traZODone HCL [Desyrel] 50 mg PO HS PRN 30 Days 12/09/16 Allergies Allergy/AdvReac Type Severity Reaction Status Date / Time ziprasidone HCl [From Geodon] AdvReac Unknown Verified 12/23/16 07:39 ziprasidone mesylate AdvReac Unknown Verified 12/23/16 07:39 [From Geodon] Review of Systems ROS Statement: Those systems with pertinent positive or pertinent negative responses have been documented in the HPI. ROS Other: All systems not noted in ROS Statement are negative. Constitutional: Denies: fever Eyes: Denies: eye pain ENT: Denies: ear pain Respiratory: Denies: cough Cardiovascular: Denies: chest pain Endocrine: Denies: fatigue Gastrointestinal: Denies: abdominal pain Genitourinary: Denies: dysuria Musculoskeletal: Denies: back pain Skin: Denies: rash Neurological: Denies: weakness Past Medical History Past Medical History: No Reported History Additional Past Medical History / Comment(s): Schizoaffective disorder, bipolar; History of Any Multi-Drug Resistant Organisms: None Reported Past Surgical History: No Surgical Hx Reported Additional Past Surgical History / Comment(s): UNABLE TO OBTAIN, PT NONRESPONSIVE Past Psychological History: Bipolar, Depression, PTSD, Schizoaffective Disorder Smoking Status: Current every day smoker Past Alcohol Use History: Abuse Additional Past Alcohol Use History / Comment(s): Patient is a smoker of one pack per day since he was 20 years of age. He states he uses marijuana every other day. He also uses heroin because his uses heroin. He states he snorted and does not use IV. He also admits to drinking 3 pops or 3 large coffees per day. His also been in and out of senior care. He does not have any children. Past Drug Use History: Marijuana, Opiates Additional Drug Use History / Comment(s): marijuana - Past Family History Father Additional Family Medical History / Comment(s): Father is alive at age 58 with no major medical problems. Mother Additional Family Medical History / Comment(s): Mother is alive in her early 60s with history of paranoid schizophrenia. Brother(s) Additional Family Medical History / Comment(s): He has 5 brothers and one is in snf. He does not know their medical problems. Sister(s) Additional Family Medical History / Comment(s): Patient has 2 stepsisters and one adopted sister. He does not have any children. General Exam Limitations: no limitations General appearance: alert, in no apparent distress Head exam: Present: atraumatic Eye exam: Present: normal appearance, PERRL ENT exam: Present: normal oropharynx Neck exam: Present: normal inspection Respiratory exam: Present: normal lung sounds bilaterally Cardiovascular Exam: Present: regular rate, normal rhythm GI/Abdominal exam: Present: soft. Absent: tenderness Extremities exam: Present: normal inspection Neurological exam: Present: alert. Absent: motor sensory deficit Psychiatric exam: Present: normal affect, normal mood Skin exam: Absent: rash Course Vital Signs 12/23/16 12/23/16 07:35 13:20 Temperature 97.8 F 98.4 F Pulse Rate 90 70 Respiratory 20 16 Rate Blood Pressure 119/92 119/82 O2 Sat by Pulse 97 100 Oximetry Medical Decision Making - Medical Decision Making Patient denies suicidal or homicidal thoughts. Patient was seen by [facility] as well as [facility]. Recommendation was for discharge. Patient to receive his medication injection. Patient contracts for safety. - Lab Data Lab Results 12/23/16 Range/Units 09:25 Urine Opiates Screen Not Detected (NotDetected) Ur Oxycodone Screen Not Detected (NotDetected) Urine Methadone Screen Not Detected (NotDetected) Ur Propoxyphene Screen Not Detected (NotDetected) Ur Barbiturates Screen Not Detected (NotDetected) U Tricyclic Antidepress Not Detected (NotDetected) Ur Phencyclidine Scrn Not Detected (NotDetected) Ur Amphetamines Screen Not Detected (NotDetected) U Methamphetamines Scrn Not Detected (NotDetected) U Benzodiazepines Scrn Not Detected (NotDetected) Urine Cocaine Screen Not Detected (NotDetected) U Marijuana (THC) Screen Detected H (NotDetected) Disposition Clinical Impression: Chronic schizophrenia Disposition: HOME SELF-CARE Condition: Stable Instructions: Schizophrenia (ED) Additional Instructions: Please follow-up with mobile crisis and counselor tomorrow. Return for thoughts of harming yourself or others, not sleeping or worsening symptoms. Please do taking her medication as directed. Avoid drugs. Referrals: Dixon Walton DO [Primary Care Provider] - 1-2 days
[2016-12-23 13:23] VITALS: TEMP 98.4
[2016-12-23 14:36] VITALS: BP 119/70; PULSE 79; RESP 18
== END 2016-12-23 14:33 | disposition home or self-care (01) ==
LOC: EC 07:16
DX: F20.9 Schizophrenia, unspecified (principal); Z88.8 Allergy status to other drugs, medicaments and biological substances
CPT/HCPCS: 80306; 82075; 99284

== ENCOUNTER 2016-12-25 05:35 | Emergency (ER) | payer OTHER ==
[2016-12-25 05:40] VITALS: BP 132/76; PULSE 91; RESP 18; TEMP 97.8
--- NOTE | 2016-12-25 05:48 | ED ---
General Adult HPI - General Chief complaint: Recheck/Abnormal Lab/Rx Stated complaint: Med Refills Time Seen by Provider: 12/25/16 05:40 Source: patient, RN notes reviewed Mode of arrival: ambulatory Limitations: no limitations - History of Present Illness Initial comments: This is a 36-year-old male who presents emergency department stating he is out of his medication because his took his money and spent on heroin. Patient states he has been in the emergency department quite a bit lately so he can get some medication. Patient states he wants some Ativan and some Motrin and some of his antipsychotic medications. Patient denies having any new symptoms. Patient denies any physical complaints today. Patient denies being delusional today. Patient states he's been out of his medicines for over a week. Patient agrees that he keeps coming back to the emergency department to get medications for free. - Related Data Home Medications Medication Instructions Recorded Confirmed LORazepam [Ativan] 1 mg PO BID 12/25/16 12/25/16 Previous Rx's Medication Instructions Recorded Melatonin 5 mg PO HS 30 Days 12/09/16 Paliperidone IM [Invega Sustenna] 156 mg IM ONCE #1 syr 12/09/16 Paliperidone [Invega] 6 mg PO DAILY 7 Days 12/09/16 traZODone HCL [Desyrel] 50 mg PO HS PRN 30 Days 12/09/16 Allergies Allergy/AdvReac Type Severity Reaction Status Date / Time ziprasidone HCl [From Geodon] AdvReac Unknown Verified 12/23/16 07:39 ziprasidone mesylate AdvReac Unknown Verified 12/23/16 07:39 [From Geodon] Review of Systems ROS Statement: Those systems with pertinent positive or pertinent negative responses have been documented in the HPI. ROS Other: All systems not noted in ROS Statement are negative. Past Medical History Past Medical History: No Reported History Additional Past Medical History / Comment(s): Schizoaffective disorder, bipolar; History of Any Multi-Drug Resistant Organisms: None Reported Past Surgical History: No Surgical Hx Reported Additional Past Surgical History / Comment(s): UNABLE TO OBTAIN, PT NONRESPONSIVE Past Psychological History: Bipolar, Depression, PTSD, Schizoaffective Disorder Smoking Status: Current every day smoker Past Alcohol Use History: Abuse Additional Past Alcohol Use History / Comment(s): Patient is a smoker of one pack per day since he was 20 years of age. He states he uses marijuana every other day. He also uses heroin because his uses heroin. He states he snorted and does not use IV. He also admits to drinking 3 pops or 3 large coffees per day. His also been in and out of [facility]. He does not have any children. Past Drug Use History: Marijuana, Opiates Additional Drug Use History / Comment(s): marijuana - Past Family History Father Additional Family Medical History / Comment(s): Father is alive at age 58 with no major medical problems. Mother Additional Family Medical History / Comment(s): Mother is alive in her early 60s with history of paranoid schizophrenia. Brother(s) Additional Family Medical History / Comment(s): He has 5 brothers and one is in [place] [facility]. He does not know their medical problems. Sister(s) Additional Family Medical History / Comment(s): Patient has 2 stepsisters and one adopted sister. He does not have any children. General Exam - General Exam Comments Initial Comments: GENERAL Patient is well-developed and well-nourished. Patient is in mild distress. EYES Patient's pupils are equal and round. Extraocular motion is intact SKIN Unremarkable NEURO The patient is alert and oriented 3 PYSCH Patient denies any suicidal homicidal ideations. Patient is requesting antipsychotic medications even though he is not having any delusions or paranoid thoughts.. MUSCULOSKELETAL Patient has full range of motion of all 4 extremities Limitations: no limitations Course Vital Signs 12/25/16 05:38 Temperature 97.8 F Pulse Rate 91 Respiratory 18 Rate Blood Pressure 132/76 O2 Sat by Pulse 99 Oximetry Disposition Clinical Impression: Medication refill Disposition: HOME SELF-CARE Condition: Good Instructions: Medicine Refill (ED) Time of Disposition: 05:47
== END 2016-12-25 05:59 | disposition home or self-care (01) ==
LOC: EC 05:35
DX: Z76.0 Encounter for issue of repeat prescription (principal); F25.9 Schizoaffective disorder, unspecified; F31.9 Bipolar disorder, unspecified; F43.10 Post-traumatic stress disorder, unspecified; F17.200 Nicotine dependence, unspecified, uncomplicated; Z79.899 Other long term (current) drug therapy; Z88.8 Allergy status to other drugs, medicaments and biological substances
CPT/HCPCS: 99282

== ENCOUNTER 2016-12-28 12:00 | Inpatient (IN) | payer MEDICARE, OTHER ==
--- NOTE | 2016-12-28 14:06 | ED ---
Psych HPI - General Chief Complaint: Psychiatric Symptoms Stated Complaint: Mental Health Time Seen by Provider: 12/28/16 13:39 Source: patient, RN notes reviewed Mode of arrival: ambulatory Limitations: no limitations - History of Present Illness Initial Comments: 36-year-old male presents emergency murmur with [facility] for psychiatric evaluation. Patient is brought here. Patient states that he he just needs medications invega, Ativan and [place] patient is having multiple 50D is in the room, very anxious. Patient has had multiple ER visits in the last few weeks. Patient denies any suicidal or homicidal thoughts. Patient states she does use illicit drugs and alcohol. There was a court order petition signed today. This was brought to my attention by [facility]. - Related Data Home Medications Medication Instructions Recorded Confirmed Ibuprofen [Motrin] 800 mg PO DAILY PRN 12/28/16 12/28/16 Allergies Allergy/AdvReac Type Severity Reaction Status Date / Time ziprasidone HCl [From Geodon] AdvReac Unknown Verified 12/23/16 07:39 ziprasidone mesylate AdvReac Unknown Verified 12/23/16 07:39 [From Geodon] Review of Systems ROS Statement: Those systems with pertinent positive or pertinent negative responses have been documented in the HPI. ROS Other: All systems not noted in ROS Statement are negative. Past Medical History Past Medical History: No Reported History Additional Past Medical History / Comment(s): Schizoaffective disorder, bipolar; History of Any Multi-Drug Resistant Organisms: None Reported Past Surgical History: No Surgical Hx Reported Additional Past Surgical History / Comment(s): UNABLE TO OBTAIN, PT NONRESPONSIVE Past Psychological History: Bipolar, Depression, PTSD, Schizoaffective Disorder Smoking Status: Current every day smoker Past Alcohol Use History: Abuse Additional Past Alcohol Use History / Comment(s): Patient is a smoker of one pack per day since he was 20 years of age. He states he uses marijuana every other day. He also uses heroin because his uses heroin. He states he snorted and does not use IV. He also admits to drinking 3 pops or 3 large coffees per day. His also been in and out of [place]. He does not have any children. Past Drug Use History: Marijuana, Opiates Additional Drug Use History / Comment(s): marijuana - Past Family History Father Additional Family Medical History / Comment(s): Father is alive at age 58 with no major medical problems. Mother Additional Family Medical History / Comment(s): Mother is alive in her early 60s with history of paranoid schizophrenia. Brother(s) Additional Family Medical History / Comment(s): He has 5 brothers and one is in half-way. He does not know their medical problems. Sister(s) Additional Family Medical History / Comment(s): Patient has 2 stepsisters and one adopted sister. He does not have any children. General Exam Limitations: no limitations General appearance: alert, in no apparent distress, anxious ENT exam: Present: normal oropharynx Neck exam: Present: normal inspection, full ROM. Absent: tenderness, meningismus, lymphadenopathy Respiratory exam: Present: normal lung sounds bilaterally. Absent: respiratory distress, wheezes, rales, rhonchi, stridor Cardiovascular Exam: Present: normal rhythm, tachycardia, normal heart sounds. Absent: systolic murmur, diastolic murmur, rubs, gallop, clicks GI/Abdominal exam: Present: soft, normal bowel sounds. Absent: distended, tenderness, guarding, rebound, rigid Neurological exam: Present: alert Psychiatric exam: Present: anxious Skin exam: Present: warm, dry, intact, normal color. Absent: rash Course Vital Signs 12/28/16 12:24 Temperature 98.0 F Pulse Rate 116 H Respiratory 18 Rate Blood Pressure 129/82 O2 Sat by Pulse 98 Oximetry Medical Decision Making - Lab Data Lab Results 12/28/16 Range/Units 13:55 Urine Opiates Screen Not Detected (NotDetected) Ur Oxycodone Screen Not Detected (NotDetected) Urine Methadone Screen Not Detected (NotDetected) Ur Propoxyphene Screen Not Detected (NotDetected) Ur Barbiturates Screen Not Detected (NotDetected) U Tricyclic Antidepress Not Detected (NotDetected) Ur Phencyclidine Scrn Not Detected (NotDetected) Ur Amphetamines Screen Not Detected (NotDetected) U Methamphetamines Scrn Not Detected (NotDetected) U Benzodiazepines Scrn Not Detected (NotDetected) Urine Cocaine Screen Not Detected (NotDetected) U Marijuana (THC) Screen Detected H (NotDetected) Disposition Clinical Impression: Bipolar disorder, Acute psychosis Disposition: ADMITTED IP TO THIS HOSP
[2016-12-28] MEDS ORDERED: MAGNESIUM HYDROXIDE 2,400 MG/10 ML CUP PO PRN (16:46)
[2016-12-28] MEDS ORDERED: MAG HYDROX/AL HYDROX/SIMETH 30 ML CUP PO PRN (16:46)
[2016-12-28] MEDS ORDERED: ZIPRASIDONE 20 MG VIAL IM PRN (16:46)
[2016-12-28] MEDS ORDERED: MD COMMUNICATION TO PHARMACY 1 EACH MISC PO PRN (16:53)
[2016-12-28] MEDS: NICOTINE 14MG/24HR PATCH TRANSDERM SCH (17:17)
[2016-12-28] MEDS: LORazepam 1 MG TAB PO PRN (17:18)
[2016-12-28] MEDS: ACETAMINOPHEN TAB 325 MG TAB PO PRN (17:22)
[2016-12-28] MEDS: PALIPERIDONE 6 MG TAB.ER.24 PO SCH (17:41)
[2016-12-28] MEDS: MELATONIN 5 MG TABLET PO SCH (21:49)
[2016-12-28] MEDS: traZODone HCL 50 MG TAB PO PRN (23:12)
[2016-12-29] MEDS: LORazepam 1 MG TAB PO PRN ×4 (01:00→22:13)
[2016-12-29] MEDS: PALIPERIDONE 6 MG TAB.ER.24 PO SCH (09:26)
[2016-12-29] MEDS: NICOTINE 14MG/24HR PATCH TRANSDERM SCH (09:27)
[2016-12-29 10:23] LABS: Basophils % (A) 1 %; CH 30.3; CHCM 32.6; Eosinophils # (A) 0.3 k/uL (0-0.7); Eosinophils % (A) 6 %; HCT 43.3 % (39.0-53.0); HDW 2.25; HGB 13.8 gm/dL (13.0-17.5); Luc # (Auto) 0.06; Luc % (Auto) 1; Lymphocytes # (A) 1.5 k/uL (1.0-4.8); Lymphocytes % (A) 31 %; MCH 29.8 pg (25.0-35.0); MCHC 31.9 g/dL (31.0-37.0); MCV 93.4 fL (80.0-100.0); Mean Platelet Volume 6.4; Monocytes # (A) 0.2 k/uL (0-1.0); Monocytes % (A) 5 %; Neutrophils # (A) 2.8 k/uL (1.3-7.7); Neutrophils % (A) 57 %; RBC 4.63 m/uL (4.30-5.90); RDW 13.1 % (11.5-15.5); WBC 4.9 k/uL (3.8-10.6); WBC (Perox) 5.19
[2016-12-29 11:03] LABS: Anion Gap 10 mmol/L; Blood Urea Nitrogen 13 mg/dL (9-20); Calcium 9.6 mg/dL (8.4-10.2); Carbon Dioxide 26 mmol/L (22-30); Chloride 104 mmol/L (98-107); Glucose 61 mg/dL (74-99); Non-African American GFR(MDRD) >60 (>60 ml/min/1.73 sqM); Potassium 4.3 mmol/L (3.5-5.1); Sodium 140 mmol/L (137-145)
[2016-12-29 15:26] LABS: Hepatitis B Surface Ag Index 0.05
[2016-12-29 15:32] LABS: Hepatitis B Core IgM Index 0.03
[2016-12-29 15:43] LABS: Hepatitis C Virus IgG Index 0.01
[2016-12-29 15:45] LABS: Hepatitis C Virus IgG Ab Negative (Negative)
[2016-12-29] MEDS: IBUPROFEN 400 MG TAB PO PRN (15:55)
--- NOTE | 2016-12-29 16:46 | CONS ---
DATE OF CONSULTATION: REASON FOR CONSULTATION: Tachycardia, right shoulder pain and medical clearance. Patient is admitted for psychiatric issues. Patient is mildly tachycardic, probably related to anxiety related to his psychiatric issues. Patient is complaining of right shoulder pain that has been there for more than a month. Patient does not have any active or passive restrictions of movement, although patient has a history of opiate abuse in the past, requesting [place]. Patient should be okay with ibuprofen and Tylenol, which he takes at home, which controls his pain. Patient denied any fever or chills. Patient denied any nausea, vomiting, dysuria, abdominal pain. Denied any diarrhea. REVIEW OF SYSTEMS: CONSTITUTIONAL: No fever, no malaise, no fatigue. HEENT: No recent visual problems or hearing problems. Denied any sore throat. CARDIOVASCULAR: No chest pain, orthopnea, PND, no palpitations, no syncope. PULMONARY: No shortness of breath, no cough, no hemoptysis. GASTROINTESTINAL: No diarrhea, no nausea, no vomiting, no abdominal pain. Normoactive bowel sounds. NEUROLOGICAL: No headaches, no weakness, no numbness. HEMATOLOGICAL: Denies any bleeding or petechiae. GENITOURINARY: Denies any burning micturition, frequency, or urgency. MUSCULOSKELETAL/RHEUMATOLOGICAL: Denies any joint pain, swelling, or any muscle pain. ENDOCRINE: Denies any polyuria or polydipsia. The rest of the 14 point review of systems is negative. Past medical history is significant for: 1. Schizoaffective disorder. 2. Opiate abuse in the past. 3. Marijuana abuse in the past. Does smoke 1 pack per day. Denied any alcohol abuse. FAMILY HISTORY: No major medical problems in mother and father. PHYSICAL EXAMINATION: VITAL SIGNS: Temperature 98.2, pulse of 116, respiratory rate of 16. Blood pressure is 129/82, saturating at 97% on room air. GENERAL: The patient is alert and oriented x3, not in any acute distress. Well developed, well nourished. HEENT: Pupils are round and equally reacting to light. EOMI. No scleral icterus. No conjunctival pallor. Normocephalic, atraumatic. No pharyngeal erythema. No thyromegaly. CARDIOVASCULAR: S1, S2 present. Regular rhythm. Tachycardic. PULMONARY: Chest is clear to auscultation, no wheezing or crackles. ABDOMEN: Soft, nontender, nondistended, normoactive bowel sounds. No palpable organomegaly. MUSCULOSKELETAL: No joint swelling or deformity. EXTREMITIES: No cyanosis, clubbing, or pedal edema. NEUROLOGICAL: Gross neurological examination did not reveal any focal deficits. SKIN: No rashes. LABORATORY DATA: CBC, CMP essentially within normal limits. TSH within normal limits. Urine drug screen is positive for marijuana. ASSESSMENT AND PLAN: 1. Acute psychosis. Management as per primary service. 2. Right shoulder pain. Conservative measures. Upon exam, patient does not appear to have any ligamentous tears; does not appear to have any significant musculoskeletal injury. I will go ahead and order ibuprofen and along with it patient can take his Tylenol as well as other anti-inflammatory medication. 3. Tachycardia secondary to anxiety related to his psychiatric condition. 4. Marijuana use. Counseling was provided. Since I have a suspicion about IV drug use, I went ahead and did a hepatitis panel, which is negative. 5. Nicotine abuse. Counseling was provided. Thanks for letting me participate in this patient's care. Will sign off at this time. Please call us back if needed.
[2016-12-29] MEDS: ACETAMINOPHEN TAB 325 MG TAB PO PRN (20:27)
[2016-12-29] MEDS: MELATONIN 5 MG TABLET PO SCH (21:15)
[2016-12-29] MEDS: traZODone HCL 50 MG TAB PO PRN (22:13)
[2016-12-30] MEDS: IBUPROFEN 400 MG TAB PO PRN ×2 (03:44→09:35)
[2016-12-30] MEDS: NICOTINE 14MG/24HR PATCH TRANSDERM SCH (09:13)
[2016-12-30] MEDS: LORazepam 1 MG TAB PO PRN ×2 (09:14→16:48)
[2016-12-30] MEDS: PALIPERIDONE 6 MG TAB.ER.24 PO SCH (09:14)
--- NOTE | 2016-12-30 13:20 | P.PN ---
Progress Note - Text SUBJECTIVE: I reviewed the medical record and interviewed Mr. Martines and discuss his treatment and treatment plan during team meeting. He inquired about discharge. He wishes to be discharged by 01/03/2017 because he is afraid that his will spend his disability; "last month she spent the money on heroin and we couldn't pay our bills." I explained that this admission was involuntary and he has a probate hearing next week. We will not be able to discharge him until after the probate hearing. In addition, [facility] is in process of obtaining authorization from the ID for a fee based mental health treatment. Once receive verification of the fee base authorization we can be assured that he will receive the Invega Sustenna injections through [facility]. OBJECTIVE: He presented as a disheveled appearing 36-year-old male who was pleasant on approach. He maintained eye contact and attended the interview. He had a blunted facial expression. He was alert and oriented to person, place and time. He appeared sedated and has slight psychomotor retardation. His speech was slightly dysarthric with increased rate and rhythm. His affect was stable and appropriate. He denied suicidal ideation or wishes. He denied homicidal ideation. He did not express phobias, ideas reference, paranoid ideation or delusional thoughts. His thinking was concrete and associations were coherent. He denied hallucinations and did not appear to be responding to internal stimuli. He has been attending therapeutic groups and activities. The therapist described him as disheveled, drowsy and at times monopolizing the conversation. His thinking is concrete, disorganized and illogical. He is intrusive during the therapeutic groups. ASSESSMENT: He is sedated from when necessary lorazepam and restarting Invega. He continues to show signs and symptoms of hypomania. PLAN: Continue inpatient hospitalization due to continued symptoms of hypomania. Probate hearing for involuntary hospitalization scheduled for Tuesday01/04/17. Continue paliperidone 6 mg daily and transition to Invega Sustenna once receive verification that he will received mental health treatment through [facility]. Encourage participation in therapeutic groups and activities. Evaluate clinical status response to treatment on a daily basis.
[2016-12-30] MEDS: ACETAMINOPHEN TAB 325 MG TAB PO PRN (16:48)
[2016-12-30] MEDS: MELATONIN 5 MG TABLET PO SCH (20:17)
[2016-12-30] MEDS: traZODone HCL 50 MG TAB PO PRN (21:25)
[2016-12-31] MEDS: LORazepam 1 MG TAB PO PRN ×3 (01:11→17:11)
[2016-12-31] MEDS: IBUPROFEN 400 MG TAB PO PRN ×2 (05:01→17:12)
--- NOTE | 2016-12-31 08:14 | P.HP ---
Psychiatric H&P - . H&P Date: 12/29/16 History & Physical: IDENTIFYING DATA: Is toward and is a 36-year-old male with history of bipolar disorder. He presented to unit involuntarily under a demand for hearing.. HISTORY OF PRESENT ILLNESS: We discharge her when the unit on 12/09/2016 with the diagnoses of bipolar disorder. He recommended that he follow through with outpatient mental health treatment to [facility]. He was to receive an injection of Invega 156 mg and 12/13/2016. He kept his intake appointment but was apparently told that he would need to go to [facility] to receive the Invega injection. He gave several reasons for not following through with the referral to [facility]. He complained of the cost of the oral Invega and presented to our ER 9 times since his discharge to obtain a prescription for the intake. He stated that his Medicare did not cover outpatient prescriptions but would cover the cost of medication before prescribed from the ER. He presented to the ER accompanied by staff from [facility]. According to the medical record he was manic and displayed loose associations, pressured speech and disorganized thinking. He failed to keep multiple appointments with [facility]. He alleged that he did not keep his appointments because he did not have a phone. PAST PSYCHIATRIC HISTORY: This is his third admission to this unit. He has diagnoses of bipolar disorder, marijuana use disorder and poor compliance with medical care. At the last presented to the unit on 12/02/2016 involuntarily. He deferred the probate hearing. His discharge medications included haloperidol 6 mg daily and the recommendation to complete initial titration of Invega Sustenna. He developed mental health problems was in the [employer] and receiving outpatient mental health treatment at the [facility]. He been admitted to the psychiatric units at [facility], and that the [facility]. He also talked about having an overdose with alcohol, cocaine and Seroquel in 2007. PAST MEDICAL HISTORY: He denied history of major medical illness. ALLERGIES: He is ALLERGIC to ziprasidone. SUBSTANCE USE HISTORY: He continues to smoke marijuana on a daily basis. He complained that his is relapsed to heroin. "I used to use with her but not anymore." He stated that he snorted some marijuana about one week prior to admission. His urine drug screen was positive only for marijuana. His breath alcohol level was 0.00. He talked about past use of cocaine, heroin, crack cocaine and "speed." He denied participation in a substance abuse treatment program. FAMILY PSYCHIATRIC/SUBSTANCE USE HISTORY: According to the record, his mother was diagnosed with paranoid schizophrenia. He has a half-brother diagnosed with ADHD LEGAL HISTORY: He is in violation of probation for a third DUI conviction. He denied it was related to alcohol use stated that he was driving after he had smoked marijuana. According to the [facility] court docket he has convictions for disorderly person, domestic violence and breaking and entering without owners permission. SOCIAL HISTORY: According to record he graduated from high school. He was in [employer] during [employer] for about 12 months. He received a general discharge. He is 100% service connected for mental illness. He's been for about one year and has know his for 4 years. 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 He talked about ongoing conflicts with his regarding her use of heroin. MENTAL STATUS EXAM: He presented as a disheveled appearing 36-year-old male who was pleasant on approach. He made eye contact and appeared to attend to interview. No distinguishing features or prominent physical abnormalities. He had a blunted facial expression. He was alert and oriented to person, place and time. He showed slight psychomotor retardation but no abnormal involuntary movements. His speech was spontaneous, slurred with decreased rate, rhythm and volume. His affect was blunted but stable and appropriate. He denied suicidal ideation or wishes. He denied homicidal ideation. He denied feelings of hopelessness, helplessness or worthlessness. He did not express obsessions, ruminations, phobias, ideas reference or paranoid ideation. His thinking was concrete but his associations were coherent and logical. He did not demonstrate clang associations, perseveration , neologisms or blocking. He denied hallucinations and did not appear to be responding to internal stimuli. Global impression of intellect is average to above. He is aware of his illness but is ambivalent about mental health treatment. STRENGTHS: Good physical health, stable income, stable housing. WEAKNESSES: Marital conflict, poor compliance with mental health treatment. IMPRESSION: Is a 36-year-old male with history of bipolar disorder. He presented to unit under demand for hearing her failing to follow through with recommended outpatient treatment. He gave several reasons for not following through with recommended treatment. However, he presented to our ER multiple times with requests for admission and/or a prescription of psychotropic medications. We'll proceed with the probate hearing for involuntary treatment, restart paliperidone and transition to Invega Sustenna once we confirm that he'll be able to receive his medication through [facility]. Otherwise, we will need to prescribe a sexual medication that is more affordable. PRINCIPLE DIAGNOSIS: Bipolar disorder, most recent episode manic without psychotic features, marijuana abuse disorder, opiate use disorder, poor compliance with medical care RECOMMENDATION: Continue inpatient psychiatric hospitalization. Proceed with probate hearing for involuntary hospitalization. Consult medicine for initial physical exam and medical history. 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 Resume Invega 6 mg by mouth daily and transition to Invega Sustenna once we are sure that he will receive the medication through [facility] melatonin 5 mg at bedtime and trazodone 50 mg daily at bedtime when necessary for sleep. Risperdal 1 mg by mouth 3 times a day when necessary for acute anxiety or agitation. Encourage participation in therapeutic groups and activities. Evaluate clinical status response to treatment daily basis. Allergies Allergy/AdvReac Type Severity Reaction Status Date / Time ziprasidone HCl [From Geodon] AdvReac Unknown Verified 12/23/16 07:39 ziprasidone mesylate AdvReac Unknown Verified 12/23/16 07:39 [From Geodon] Vital Signs Temp 98.2 F 12/29/16 05:03 Pulse 108 H 12/29/16 05:03 Resp 16 12/29/16 05:03 BP 101/60 12/29/16 05:03 Pulse Ox 97 12/28/16 16:46 Laboratory Last Values Urine Opiates Screen Not Detected (NotDetected) 12/28/16 13:55 Ur Oxycodone Screen Not Detected (NotDetected) 12/28/16 13:55 Urine Methadone Screen Not Detected (NotDetected) 12/28/16 13:55 Ur Propoxyphene Screen Not Detected (NotDetected) 12/28/16 13:55 Ur Barbiturates Screen Not Detected (NotDetected) 12/28/16 13:55 U Tricyclic Antidepress Not Detected (NotDetected) 12/28/16 13:55 Ur Phencyclidine Scrn Not Detected (NotDetected) 12/28/16 13:55 Ur Amphetamines Screen Not Detected (NotDetected) 12/28/16 13:55 U Methamphetamines Scrn Not Detected (NotDetected) 12/28/16 13:55 U Benzodiazepines Scrn Not Detected (NotDetected) 12/28/16 13:55 Urine Cocaine Screen Not Detected (NotDetected) 12/28/16 13:55 U Marijuana (THC) Screen Detected (NotDetected) H 12/28/16 13:55 12/29/16 07:49 12/29/16 09:10 12/31/16 08:13
[2016-12-31] MEDS: NICOTINE 14MG/24HR PATCH TRANSDERM SCH (09:01)
[2016-12-31] MEDS: PALIPERIDONE 6 MG TAB.ER.24 PO SCH (09:02)
[2016-12-31] MEDS: ACETAMINOPHEN TAB 325 MG TAB PO PRN ×3 (09:04→20:20)
[2016-12-31] MEDS ORDERED: PALIPERIDONE IM 234 MG/1.5 ML SYG IM ONE (12:00)
--- NOTE | 2016-12-31 13:16 | P.PN ---
Progress Note - Text SUBJECTIVE: I reviewed the medical record, interviewed Mr. Martines and discuss his treatment and treatment plan during team meeting. He is concerned about his 's spending his VA disability and talked about her spending $500 last month on heroin. We discussed treatment and he agreed to resume Invega Sustenna. OBJECTIVE: He presented as a disheveled appearing 36-year-old male was pleasant on approach. He made eye contact and appeared to attend to the interview. He appeared sedated. He had a blunted but bright facial expression. He is alert and oriented to person, place and time. He showed slight psychomotor retardation but no abnormal involuntary movements. His speech was spontaneous with increased rate and rhythm. He did not display pressured speech. His affect was blunted but stable and appropriate. He denied suicidal ideation or wishes. He denied homicidal ideation. He denied feelings of hopelessness, helplessness and worthlessness. He ruminated about discharge, his marriage and his 's substance use problem. He did not express ideas reference, paranoid ideation or delusional thoughts. His thinking was concrete but his associations were coherent and logical. He denied hallucinations and did not appear to responding to internal stimuli ASSESSMENT: He has last restless, hyperverbal and labile than on admission. PLAN: Continue inpatient hospitalization pending the probate hearing on 01/04/17. Continue Invega 6 mg daily. Begin Invega Sustenna 234 mg IM today and administer 156 mg in 4 days. Social work is coordinating aftercare with [facility] and [facility]. Encourage continued participation in therapeutic groups and activities. Evaluate clinical status response to treatment daily basis.
[2016-12-31] MEDS: MELATONIN 5 MG TABLET PO SCH (20:20)
[2016-12-31] MEDS: traZODone HCL 50 MG TAB PO PRN (22:52)
[2017-01-01] MEDS: LORazepam 1 MG TAB PO PRN ×3 (00:57→20:42)
[2017-01-01] MEDS: IBUPROFEN 400 MG TAB PO PRN (03:46)
[2017-01-01] MEDS: NICOTINE 14MG/24HR PATCH TRANSDERM SCH (09:14)
[2017-01-01] MEDS: PALIPERIDONE 6 MG TAB.ER.24 PO SCH (09:15)
[2017-01-01] MEDS: ACETAMINOPHEN TAB 325 MG TAB PO PRN (09:15)
--- NOTE | 2017-01-01 10:07 | P.PN ---
Progress Note - Text Interval history: The patient is found in the hallway he follows me to an interview room. He reports that his mood is fine but he is struggling with sleep. Staff reported he only slept 2 hours last evening. He historically had been on Seroquel which helped but he doesn't want to go back on that medication due to side effects. He is being treated with Invega Sustenna. He is on trazodone and melatonin in the evening. We discussed titrating the trazodone dose we will have to make sure we do not elicit any hypomanic or manic symptoms however. He reports selectively attending groups. He is aware he has a court hearing next week. Mental status exam: The patient is a thin male he is disheveled he is dressed in his own clothing. Eye contact is appropriate he has a bland affect he does have spontaneous speech. He will ask intrusive questions at times but is redirectable. Overall he is attempting to cooperate. Thought process can be linear he does demonstrate some circumstantial thinking and tangential thinking at times no flight of ideas. He reports no suicidal or homicidal ideation intent or plan. He is endorsing no auditory or visual hallucinations he endorses no paranoid or persecutory thoughts today. Insight and judgment limited. He expresses some thoughts that may be grandiose. He is oriented to person place and date. He demonstrates no verbal or physical aggressiveness. Plan: The patient will continue on his current medication I will titrate the trazodone 100 mg at bedtime. We are doing this to try to improve his sleep at night. We will monitor for any worsening of manic symptoms. Vital signs reviewed.
[2017-01-01] MEDS: traZODone HCL 100 MG TAB PO SCH (21:58)
[2017-01-01] MEDS: MELATONIN 5 MG TABLET PO SCH (21:58)
[2017-01-02] MEDS: LORazepam 2 MG/ML SYRINGE IM PRN (01:19)
[2017-01-02] MEDS: PALIPERIDONE 6 MG TAB.ER.24 PO SCH (09:05)
[2017-01-02] MEDS: NICOTINE 14MG/24HR PATCH TRANSDERM SCH (09:05)
[2017-01-02] MEDS: LORazepam 1 MG TAB PO PRN ×3 (09:07→21:56)
--- NOTE | 2017-01-02 10:38 | P.PN ---
Progress Note - Text Interval history: The patient is found in the hallway he follows me to an interview room. He reports his mood is stable he is looking forward to a discharge on Tuesday after court. He was disappointed that his did not visit last night as she was late for visiting hours. He is hoping she will attend this evening. He notes mild improvement in sleep. Appetite stable he reports he is showering. He has no questions regarding his medications this morning. No agitated behavior reported. Mental status exam: The patient is alert he seated calmly he has a mildly disheveled appearance he is dressed in his own clothing hygiene seems adequate. Eye contact is appropriate he states his mood is "fine". He maintains a bland affect. Speech is spontaneous fluent nonpressured. He will calmly make blunt statements at times and will ask personal questions at times. He is redirectable without agitation however. He is reporting no auditory or visual hallucinations he is reporting no suicidal or homicidal ideation intent or plan. He does not appear to be responding to internal stimuli. Insight and judgment slowly improving. He is oriented to person place and date. Plan: The patient will continue on his current medications we will continue to monitor him for safety and encourage his participation in the milieu. Vital signs reviewed.
[2017-01-02 11:36] VITALS: BMI 23.7
[2017-01-02] MEDS: IBUPROFEN 400 MG TAB PO PRN (14:31)
[2017-01-02] MEDS: ACETAMINOPHEN TAB 325 MG TAB PO PRN (17:03)
[2017-01-02] MEDS: MELATONIN 5 MG TABLET PO SCH (21:55)
[2017-01-02] MEDS: traZODone HCL 100 MG TAB PO SCH (21:55)
[2017-01-03] MEDS: ACETAMINOPHEN TAB 325 MG TAB PO PRN (03:34)
[2017-01-03] MEDS: LORazepam 1 MG TAB PO PRN ×2 (09:21→22:41)
[2017-01-03] MEDS: IBUPROFEN 400 MG TAB PO PRN (09:21)
[2017-01-03] MEDS: PALIPERIDONE 6 MG TAB.ER.24 PO SCH (09:21)
[2017-01-03] MEDS: NICOTINE 14MG/24HR PATCH TRANSDERM SCH (09:21)
--- NOTE | 2017-01-03 15:12 | P.PN ---
Progress Note - Text SUBJECTIVE: I reviewed the medical record, interviewed Mr. Martines and discuss his treatment and treatment plan during team meeting. He complained about his and alleged that he's decided to file for divorce. He denied having auditory or visual hallucinations. He denied ideas of reference, thought insertion, thought broadcasting or thought control. He hopes that he can continue treatment through [facility] because it is difficult for him to travel to the [facility] for mental health treatment. He denied side effects to the initial Invega Sustenna injection. OBJECTIVE: He presented as a casually groomed 36-year-old male who was pleasant on approach. He maintained eye contact and attended the interview. He had no distinguishing features or prominent physical maladies. He had a blunted facial expression. He showed no abnormality of psychomotor activity. At no abnormal involuntary movements. His speech was spontaneous with normal rate, rhythm and volume. His affect was blunted but stable and appropriate. He denied suicidal ideation or wishes. He denied feeling hopeless, helpless or worthless. He denied ideas reference and stress paranoid ideation or delusional thoughts. His thinking was abstract and associations were coherent and logical. He's been compliant with prescribed medications and has been attending therapeutic groups and activities. He has posed no management problem and displayed no episodes of behavioral dyscontrol. ASSESSMENT: He is much less hypomanic than on admission. PLAN: Inpatient hospitalization pending is probate hearing on 01/04/17. Continue Invega 6 mg daily until the second injection of Invega Sustenna 156 mg tomorrow. flour worker reported that we should have a decision about fee based care through [facility] from the [place] by Tuesday. Encouraged continued participation in therapies groups and activities. Evaluate clinical status response to treatment on a daily basis.
[2017-01-03] MEDS: MELATONIN 5 MG TABLET PO SCH (21:05)
[2017-01-03] MEDS: traZODone HCL 100 MG TAB PO SCH (21:05)
[2017-01-04] MEDS: IBUPROFEN 400 MG TAB PO PRN ×2 (04:12→18:15)
[2017-01-04] MEDS: PALIPERIDONE 6 MG TAB.ER.24 PO SCH (08:07)
[2017-01-04] MEDS: NICOTINE 14MG/24HR PATCH TRANSDERM SCH (08:07)
[2017-01-04] MEDS: LORazepam 1 MG TAB PO PRN ×2 (11:53→21:20)
[2017-01-04 12:37] LABS: Appearance,Urine Clear (Clear); Bilirubin,Urine Negative (Negative); Glucose,Urine (UA) Negative (Negative); Ketones,Urine Negative (Negative); Leukocyte Esterase,Urine Negative (Negative); Nitrite,Urine Negative (Negative); Protein,Urine Negative (Negative); Specific Gravity,Urine 1.007 (1.001-1.035); UA Billing (MACRO vs. MICRO) CHEM; Urobilinogen,Urine <2.0 mg/dL (<2.0)
--- NOTE | 2017-01-04 13:22 | P.PN ---
Progress Note - Text SUBJECTIVE: I reviewed the medical record, interviewed Mr. Martines and discuss his treatment and treatment plan during team meeting. He is anxious about the probate hearing this afternoon. I suggested that he speak with his disability attorney before the court hearing about stipulating to the commitment order because he plans to follow through with treatment as recommended. He is angry that his was awarded emergency guardianship over him. His primary concern is his monthly disability check and he implied that his is not responsible with money. He did not alleged that she spends the entire disability check on drugs. He denied side effects to paliperidone and is looking forward to receiving services through [facility]. We talked about his benzodiazepine use. He alleged that the 1 mg dose is no longer effective. I recommended recommended that he stop requesting Ativan while he is in hospital as he appears to be developing a tolerance. OBJECTIVE: Presented as a casually groomed slightly malodorous 36-year-old male who was pleasant on approach. He made eye contact and attended to the interview. He had a blunted but bright facial expression. He showed no abnormality of psychomotor behavior. He had normal gait and station. His speech was spontaneous with normal rate, rhythm and volume. His affect was stable and appropriate. He denied suicidal ideation or wishes. He denied depressive cognitions such as hopelessness, helplessness or worthlessness. He ruminated about his legal problems, his marriage and the guardianship. He did not express ideas reference, paranoid ideation or delusional thinking. He denied hallucinations and did not appear to be responding to internal stimuli. ASSESSMENT: His does not appear manic or hypomanic. He is less sedated than yesterday. Overall he is much improved from admission PLAN: Continue inpatient hospitalization pending the probate hearing. Administer second dose of the Invega titration today-156 mg IM. Continue Invega 6 mg daily until discharge. Aftercare to be coordinated by the social service liaison. Consider discharge on 01/05/2017. Encouraged continued participation in therapeutic groups and activities. Evaluate clinical status response to treatment daily basis.
[2017-01-04] MEDS: MELATONIN 5 MG TABLET PO SCH (21:20)
[2017-01-04] MEDS: traZODone HCL 100 MG TAB PO SCH (21:20)
[2017-01-05] MEDS: ACETAMINOPHEN TAB 325 MG TAB PO PRN (06:19)
[2017-01-05] MEDS ORDERED: PALIPERIDONE IM 156 MG/ML SYG IM ONE (09:00)
[2017-01-05] MEDS: PALIPERIDONE 6 MG TAB.ER.24 PO SCH (09:40)
[2017-01-05] MEDS: NICOTINE 14MG/24HR PATCH TRANSDERM SCH (09:40)
[2017-01-05] MEDS: IBUPROFEN 400 MG TAB PO PRN (09:43)
[2017-01-05] MEDS: LORazepam 1 MG TAB PO PRN (09:43)
--- NOTE | 2017-01-05 11:25 | P.PN ---
Progress Note - Text SUBJECTIVE: I reviewed the medical record, interviewed Mr. Martines and discuss his treatment and treatment plan during team meeting. He requested an HIV test. He alleged that he had sex with a woman he has since turned has HIV. He was evasive about when they had their relationship but implied that it was sometime before he met his current . She was also concerned about discharge. He pressed me to discharge him today and assured me that he would follow through with treatment. I explained that we have not established his aftercare as we have not learned that [facility] received fee base authorization from the [place]. He denied side effects to Invega. He continues to request lorazepam for complaints of subjective anxiety. We talked about the risk of dependence and tolerance and his past history of drug use. He is high risk for abuse and/or dependence on a benzodiazepine. OBJECTIVE: Appendectomy presented as a casually groomed 36-year-old male who was pleasant on approach. He made eye contact and attended to the unit. He had no distinguishing features or prominent physical abnormalities. He had a blunted but bright facial expression. He was alert and oriented to person, place and time. He was not restless and displayed no abnormal involuntary movements. His speech was pressured. His affect was blunted but stable and appropriate. He denied suicidal ideation or wishes. He denied homicidal ideation. He denied feelings of hopelessness, helplessness or worthlessness. He ruminated on discharge, his marriage and the belief that he may have HIV. He did not express phobias, ideas reference or paranoid ideation. His thinking was abstract. He showed flight of ideas. He denied hallucinations and did not appear to be responding to internal stimuli. He had a probate hearing yesterday for involuntary hospitalization. He stipulated to a 60/90 day combined treatment order. ASSESSMENT: He continues to show signs and symptoms of hypomania. PLAN: Continue inpatient psychiatric hospitalization due to signs and symptoms of hypomania. Continue Invega 6 mg daily. Administer Invega Sustenna 156 mg prior to discharge. Discharge home once receive confirmation of fee base authorization for [facility]. Social work remains in contact with the [place]. Encourage participation in therapeutic groups and activities. Evaluate clinical status response to treatment on a daily basis.
[2017-01-05] MEDS: MELATONIN 5 MG TABLET PO SCH (20:16)
[2017-01-05] MEDS: traZODone HCL 100 MG TAB PO SCH (20:17)
[2017-01-05] MEDS: LORazepam 2 MG/ML SYRINGE IM PRN (20:19)
[2017-01-06] MEDS: ACETAMINOPHEN TAB 325 MG TAB PO PRN (06:21)
[2017-01-06] MEDS: PALIPERIDONE 6 MG TAB.ER.24 PO SCH (08:57)
[2017-01-06] MEDS: NICOTINE 14MG/24HR PATCH TRANSDERM SCH (08:57)
[2017-01-06] MEDS: IBUPROFEN 400 MG TAB PO PRN (09:55)
[2017-01-06] MEDS: LORazepam 1 MG TAB PO PRN ×2 (09:56→20:59)
--- NOTE | 2017-01-06 13:41 | P.PN ---
Progress Note - Text SUBJECTIVE: I reviewed the medical record, interviewed Mr. Martines and discuss his treatment and treatment plan during team meeting. He became acutely distress yesterday evening and, according nursing note, punchedthe wall and was crying on the telephone because his was not agreeable to marriage counseling. He received 1 mg of lorazepam IM. He minimizes the severity of his distress and described it as a marital argument. He was preoccupied about discharge and stated that he has range to receive his mental health treatment through [facility]. He complains of being anxious about remaining in the hospital. OBJECTIVE: He presented as a somewhat disheveled appearing 36-year-old male who was pleasant on approach. He made eye contact and attended to interview. He had a blunted but bright facial expression. He was alert and oriented to person, place and time. He showed no abnormality of psychomotor activity. He is not restless or agitated. His speech was spontaneous with increased rate but normal rhythm and volume. His affect was dysphoric but stable and appropriate. He denied suicidal ideation or wishes. He denied homicidal ideation. He denied feeling hopeless, helpless or worthless. He didn't express ideas reference, paranoid ideation or delusions. His thinking was concrete but his associations were coherent and logical. He did not demonstrate clang associations, perseveration or neologisms. He denied hallucinations and did not appear to be responding to internal stimuli. ASSESSMENT: He is continues have some signs and symptoms of hypomania but is compliant with medications. He continues to requests when necessary lorazepam for complaints of subjective anxiety. Authorization for the base treatment has apparently been improved and he has an appointment at [facility] on 01/14/2017. PLAN: Plan to discharge on 01/07/2017 with follow-up through [facility]. He received his second injection of housekeeping assistant on 01/05/2017. Encouraged continued participation in therapeutic groups and activities.
[2017-01-06] MEDS: MELATONIN 5 MG TABLET PO SCH (20:58)
[2017-01-06] MEDS: traZODone HCL 100 MG TAB PO SCH (20:58)
[2017-01-07 06:29] VITALS: BP 129/83; PULSE 108; RESP 16; TEMP 98.2
[2017-01-07] MEDS: NICOTINE 14MG/24HR PATCH TRANSDERM SCH (08:37)
[2017-01-07] MEDS: PALIPERIDONE 6 MG TAB.ER.24 PO SCH (08:38)
[2017-01-07] MEDS: LORazepam 1 MG TAB PO PRN (10:22)
--- NOTE | 2017-01-07 12:18 | P.DS ---
Providers Date of admission: 12/28/16 16:23 Attending physician: Jeremy Minaya MD Consults: 12/28/16 16:46 Consult Physician Routine Consulting Provider: Destiny Duran Consult Reason/Comments: h and p, eval and tx, r/o metabolic disorder Do you want consulting provider notified?: Yes Primary care physician: Dixon Walton - Discharge Diagnosis(es) (1) Poor compliance Current Visit: Yes Status: Chronic Priority: High (2) Bipolar disorder, most recent episode manic Current Visit: No Status: Chronic Priority: High Hospital Course: He is a 36-year-old male with history of bipolar disorder. He presented to unit involuntarily under a demand for hearing. His last admission, on 12/02/2016, was involuntary and deferred the probate hearing. His discharge medications included Invega 6 mg daily and we recommended to complete the titration of Invega Sustenna at the [facility] clinic in [facility]. He was to receive an injection of Invega 156 mg and 12/13/2016. He kept his intake appointment but was apparently told that he would need to go to [facility] to receive the Invega injection. He gave several reasons for not following through with the referral to [facility]. He presented to our ER 9 times since his discharge to obtain a prescription for Invega and Ativan. He stated that his Medicare did not cover outpatient prescriptions but would cover the cost of medication before prescribed from the ER. He presented to the ER accompanied by staff from [facility]. According to the medical record he was manic and displayed loose associations, pressured speech and disorganized thinking. He failed to keep 2 appointments with [facility]. He alleged that he did not keep his appointments because he did not have a phone. This is his third admission to this unit. He has diagnoses of bipolar disorder , marijuana use disorder and poor compliance with psychiatric care. He developed mental health problems while he was in the [employer] and received mental health treatment at the [facility]. He been been admitted to the psychiatric units at [facility], and that the [facility]. He also talked about having an overdose with alcohol, cocaine and Seroquel in 2007. Appendectomy as a history of marijuana use disorder and continues to smoke marijuana. He complained that his relapsed to heroin and used heroin once prior to admission. His urine drug screen was positive only for marijuana. His breath alcohol level was 0.00. He talked about past use of cocaine, heroin , crack cocaine and "speed." He denied participation in a substance abuse treatment program. He is in violation of probation for a third DUI conviction. He denied it was related to alcohol use stated that he was driving after he had smoked marijuana. According to the [facility] court docket he has convictions for disorderly person, domestic violence and breaking and entering without owners permission. We admitted him to the psychiatric unit under the care of this ticket writer. We provided a biopsychosocial assessment. The claims consultant completed the initial physical exam and medical history and diagnosed acute psychosis, right shoulder pining, tachycardia secondary to anxiety and marijuana use. We restarted Invega 6 mg per day and restarted the titration of Invega Sustenna. During his probate hearing for involuntary hospitalization he waived his right to hear my testimony and stipulated to terms of the involuntary treatment order. His informed the psychiatric social worker that she applied for temporary guardianship stating his impaired judgment and reckless spending of his disability. He complained about his throughout this hospitalization at times alleging that he is filing for divorce and at other times distressed that his would not agree to marital counseling. We administered the consistent with 234 mg on 2016 and 156 mg on 01/05/2017. His restlessness, hyperactivity, pressured speech and irritability gradually subsided but did not entirely resolve during this hospitalization. Although he was sleeping 2-3 hours per night during the first week of hospitalization he slept 5-6 hours over 3 days prior to discharge. We submitted a request to the [place] for fee-based treatment through [facility]. The [facility] schedule an initial psychiatric assessment and 01/14/2017. However, we have not received notification of the [facility]'s decision regarding the fee-based application. He [facility] liaison sent his discharge medication prescriptions, including the prescription for Invega Sustenna 234 mg monthly, to the [facility]. He is scheduled to receive his injection of Invega on 02/02/2017. At the time of discharge she denied suicidal or homicidal ideation. He denied psychotic symptoms such as auditory or visual hallucinations, ideas reference, thought insertion, thought broadcasting or thought control. His affect was elevated but he was pleasant and directable. Patient Condition at Discharge: Stable Plan - Discharge Summary New Discharge Prescriptions: LORazepam [Ativan] 1 mg PO TID PRN #10 tab PRN Reason: acute anxiety/agitation Melatonin 5 mg PO HS #30 tablet Nicotine 14Mg/24Hr Patch [Habitrol] 1 patch TRANSDERM DAILY #14 patch Paliperidone IM [Invega Sustenna] 234 mg IM QMONTH #1 syr traZODone HCL [Desyrel] 100 mg PO HS #30 tab Discharge Medication List Ibuprofen [Motrin] 800 mg PO DAILY PRN 12/28/16 [History] LORazepam [Ativan] 1 mg PO TID PRN #10 tab 01/07/17 [Rx] Melatonin 5 mg PO HS #30 tablet 01/07/17 [Rx] Nicotine 14Mg/24Hr Patch [Habitrol] 1 patch TRANSDERM DAILY #14 patch 01/07/17 [ Rx] Paliperidone IM [Invega Sustenna] 234 mg IM QMONTH #1 syr 01/07/17 [Rx] traZODone HCL [Desyrel] 100 mg PO HS #30 tab 01/07/17 [Rx] Follow up Appointment(s)/Referral(s): Gracie Wallace [Other] - 1 Week ([facility] Liaison ) [facility] [Outside] - 01/14/17 10:00 am (January 14, 2017 at 10:[address] Wiley. ) Dixon Walton DO [Primary Care Provider] - 1 Week Discharge Disposition: HOME SELF-CARE
[2017-01-08 05:39] LABS: HIV-1/HIV-2 Ab Screen NONREAC (NON REAC)
== END 2017-01-07 13:06 | disposition home or self-care (01) | DRG 885 ==
LOC: EC 12:00 → 3MHU 16:23
PROVIDERS: ADMIT Psychiatry & Neurology Psychiatry; ATTEND Psychiatry & Neurology Psychiatry
DX: F31.9 Bipolar disorder, unspecified (principal); F25.9 Schizoaffective disorder, unspecified; F17.200 Nicotine dependence, unspecified, uncomplicated; F12.90 Cannabis use, unspecified, uncomplicated; F11.90 Opioid use, unspecified, uncomplicated; F43.10 Post-traumatic stress disorder, unspecified; Z81.8 Family history of other mental and behavioral disorders; M25.511 Pain in right shoulder
CPT/HCPCS: 80048; 80074; 80306; 81003; 82075; 84443; 85025; 87389

== ENCOUNTER 2017-02-27 03:19 | Emergency (ER) | payer MEDICARE ==
[2017-02-27 03:29] VITALS: BP 132/90; PULSE 107; RESP 20; TEMP 98.3
--- NOTE | 2017-02-27 03:52 | ED ---
Psych HPI - General Chief Complaint: Psychiatric Symptoms Stated Complaint: Mental Health Time Seen by Provider: 02/27/17 03:45 Source: patient, RN notes reviewed, old records reviewed Mode of arrival: ambulatory - History of Present Illness Initial Comments: Patient is a 36-year-old male presents emergency Department chief complaint of needing a medication refill of his anxiety medication. He reports that he received Xanax for on Dr. Minaya. Patient reports that he needs a refill of this. Also complains of dental pain and needs a refill of his Arvilla. He reports that he did take shrooms today. He denies any other drug use or alcohol use. Patient reports that he has no suicidal or homicidal ideation.. Patient denies any recent fever, chills, shortness of breath, chest pain, back pain, abdominal pain, nausea vomiting, numbness or tingling, dysuria or hematuria, constipation or diarrhea, headaches or visual changes, or any other current symptoms - Related Data Home Medications Medication Instructions Recorded Confirmed Ibuprofen [Motrin] 800 mg PO DAILY PRN 12/28/16 01/03/17 Previous Rx's Medication Instructions Recorded LORazepam [Ativan] 1 mg PO TID PRN #10 tab 01/07/17 Melatonin 5 mg PO HS #30 tablet 01/07/17 Nicotine 14Mg/24Hr Patch [Habitrol] 1 patch TRANSDERM DAILY #14 patch 01/07/17 Paliperidone IM [Invega Sustenna] 234 mg IM QMONTH #1 syr 01/07/17 traZODone HCL [Desyrel] 100 mg PO HS #30 tab 01/07/17 Allergies Allergy/AdvReac Type Severity Reaction Status Date / Time ziprasidone HCl [From Geodon] AdvReac Unknown Verified 02/27/17 03:28 ziprasidone mesylate AdvReac Unknown Verified 02/27/17 03:28 [From Geodon] Review of Systems ROS Statement: Those systems with pertinent positive or pertinent negative responses have been documented in the HPI. ROS Other: All systems not noted in ROS Statement are negative. Past Medical History Past Medical History: No Reported History Additional Past Medical History / Comment(s): Schizoaffective disorder, bipolar; History of Any Multi-Drug Resistant Organisms: None Reported Past Surgical History: No Surgical Hx Reported Additional Past Surgical History / Comment(s): UNABLE TO OBTAIN, PT NONRESPONSIVE Past Anesthesia/Blood Transfusion Reactions: No Reported Reaction Past Psychological History: Bipolar, Depression, PTSD, Schizoaffective Disorder Smoking Status: Current every day smoker Past Alcohol Use History: Abuse Past Drug Use History: Marijuana, Opiates - Past Family History Father Additional Family Medical History / Comment(s): Father is alive at age 58 with no major medical problems. Mother Additional Family Medical History / Comment(s): Mother is alive in her early 60s with history of paranoid schizophrenia. Brother(s) Additional Family Medical History / Comment(s): He has 5 brothers and one is in custodial. He does not know their medical problems. Sister(s) Additional Family Medical History / Comment(s): Patient has 2 stepsisters and one adopted sister. He does not have any children. General Exam - General Exam Comments Initial Comments: This is a 36-year-old male. No distress. Limitations: no limitations General appearance: alert, in no apparent distress Head exam: Present: atraumatic, normocephalic, normal inspection Eye exam: Present: normal appearance, PERRL, EOMI. Absent: scleral icterus, conjunctival injection, periorbital swelling ENT exam: Present: normal exam, mucous membranes moist Neck exam: Present: normal inspection. Absent: tenderness, meningismus, lymphadenopathy Respiratory exam: Present: normal lung sounds bilaterally. Absent: respiratory distress, wheezes, rales, rhonchi, stridor Cardiovascular Exam: Present: regular rate, normal rhythm, normal heart sounds. Absent: systolic murmur, diastolic murmur, rubs, gallop, clicks GI/Abdominal exam: Present: soft, normal bowel sounds. Absent: distended, tenderness, guarding, rebound, rigid Extremities exam: Present: normal inspection, full ROM, normal capillary refill. Absent: tenderness, pedal edema, joint swelling, calf tenderness Back exam: Present: normal inspection Neurological exam: Present: alert, oriented X3, CN II-XII intact Psychiatric exam: Present: normal affect, normal mood Skin exam: Present: warm, dry, intact, normal color. Absent: rash Course Vital Signs 02/27/17 03:24 Temperature 98.3 F Pulse Rate 107 H Respiratory 20 Rate Blood Pressure 132/90 O2 Sat by Pulse 97 Oximetry Medical Decision Making - Medical Decision Making Patient is a 36-year-old male presents emergency Department chief complaint of needing a medication refill of his anxiety medication. He reports that he received Xanax for on Dr. Minaya. Patient reports that he needs a refill of this. Also complains of dental pain and needs a refill of his Arvilla. He reports that he did take shrooms today. He denies any other drug use or alcohol use. Patient reports that he has no suicidal or homicidal ideation.. Patient denies any recent fever, chills, shortness of breath, chest pain, back pain, abdominal pain, nausea vomiting, numbness or tingling, dysuria or hematuria, constipation or diarrhea, headaches or visual changes, or any other current symptoms While in the emergency Department patient was being very disruptive. Patient was getting up and walking into other patient's rooms. Patient was using vulgar language as well. Patient is currently high on mushrooms. Discussed that I would not refill his prescription for Xanax or pain medication for his tooth pain. Discussed that he couldn't stop and wait to see psychiatric services. Patient denies any suicidal ideations. Discussed that if he wants to wait to talk to the psychiatric nurse that he can. After further discussion patient reports that he wants to go. Patient left the emergency department. Disposition Clinical Impression: Medication refill, Hallucinogenic mushrooms use disorder, mild Disposition: HOME SELF-CARE Condition: Stable Additional Instructions: Patient advised to follow-up with primary care provider. Discussed the effects of ingesting mushrooms. Patient should return if there is any alarming signs or symptoms occur. Referrals: Dixon Walton DO [Primary Care Provider] - 1-2 days Time of Disposition: 04:58
== END 2017-02-27 04:07 | disposition home or self-care (01) ==
LOC: EC 03:19
DX: F16.10 Hallucinogen abuse, uncomplicated (principal); Z76.0 Encounter for issue of repeat prescription; F25.9 Schizoaffective disorder, unspecified; F43.10 Post-traumatic stress disorder, unspecified; F31.9 Bipolar disorder, unspecified; F17.200 Nicotine dependence, unspecified, uncomplicated; Z88.8 Allergy status to other drugs, medicaments and biological substances
CPT/HCPCS: 82075; 99284

== ENCOUNTER 2017-02-27 17:27 | Emergency (ER) | payer MEDICARE ==
[2017-02-27 17:35] VITALS: TEMP 98.1
--- NOTE | 2017-02-27 17:43 | ED ---
Psych HPI - General Source: patient, RN notes reviewed Mode of arrival: ambulatory Limitations: no limitations <Dixon Lynn - Last Filed: 02/27/17 19:04> <Max Gonzalez - Last Filed: 02/27/17 19:31> - General Chief Complaint: Psychiatric Symptoms Stated Complaint: manic, suicidal Time Seen by Provider: 02/27/17 17:36 - History of Present Illness Initial Comments: 36-year-old male presents emergency for psychiatric evaluation. Patient is well -known emergency department. Patient currently sees [facility]. Patient states she is on medication for bipolar disorder. Patient states he feel he that he is manic and has had some suicidal thoughts. Patient denies any plan. Patient does admit to drug abuse issues denies any alcohol abuse. Patient denies any physical complaints such as chest pain, shortness breath, headache, dizziness, fever, chills, nausea vomiting diarrhea constipation. He states he has mild left upper dental pain. (Dixon Lynn) - Related Data Home Medications Medication Instructions Recorded Confirmed Benztropine Mesylate [Cogentin] 1 mg PO BID 02/27/17 02/27/17 Paliperidone IM [Invega Sustenna] 234 mg IM Q28D 02/27/17 02/27/17 busPIRone HCl [Buspar] 10 mg PO TID 02/27/17 02/27/17 Previous Rx's Medication Instructions Recorded Melatonin 5 mg PO HS #30 tablet 01/07/17 traZODone HCL [Desyrel] 100 mg PO HS #30 tab 01/07/17 Allergies Allergy/AdvReac Type Severity Reaction Status Date / Time ziprasidone AdvReac Muscle Verified 02/27/17 17:46 Rigidity Review of Systems ROS Other: All systems not noted in ROS Statement are negative. <Dixon Lynn - Last Filed: 02/27/17 19:04> ROS Other: All systems not noted in ROS Statement are negative. <Max Gonzalez - Last Filed: 02/27/17 19:31> ROS Statement: Those systems with pertinent positive or pertinent negative responses have been documented in the HPI. Past Medical History Past Medical History: No Reported History Additional Past Medical History / Comment(s): Schizoaffective disorder, bipolar; History of Any Multi-Drug Resistant Organisms: None Reported Past Surgical History: No Surgical Hx Reported Additional Past Surgical History / Comment(s): UNABLE TO OBTAIN, PT NONRESPONSIVE Past Anesthesia/Blood Transfusion Reactions: No Reported Reaction Past Psychological History: Bipolar, Depression, PTSD, Schizoaffective Disorder Smoking Status: Current every day smoker Past Alcohol Use History: Abuse Past Drug Use History: Marijuana, Opiates - Past Family History Father Additional Family Medical History / Comment(s): Father is alive at age 58 with no major medical problems. Mother Additional Family Medical History / Comment(s): Mother is alive in her early 60s with history of paranoid schizophrenia. Brother(s) Additional Family Medical History / Comment(s): He has 5 brothers and one is in assisted. He does not know their medical problems. Sister(s) Additional Family Medical History / Comment(s): Patient has 2 stepsisters and one adopted sister. He does not have any children. <Dixon Lynn - Last Filed: 02/27/17 19:04> General Exam Limitations: no limitations General appearance: alert, in no apparent distress Head exam: Present: atraumatic, normocephalic, normal inspection Eye exam: Present: normal appearance, PERRL, EOMI. Absent: scleral icterus, conjunctival injection, periorbital swelling ENT exam: Present: mucous membranes moist, TM's normal bilaterally, normal external ear exam. Absent: normal exam (Missing tooth left upper, dental caries noted no abscess), normal oropharynx Neck exam: Present: normal inspection. Absent: tenderness, meningismus, lymphadenopathy Respiratory exam: Present: normal lung sounds bilaterally. Absent: respiratory distress, wheezes, rales, rhonchi, stridor Cardiovascular Exam: Present: normal rhythm, tachycardia, normal heart sounds. Absent: systolic murmur, diastolic murmur, rubs, gallop, clicks GI/Abdominal exam: Present: soft, normal bowel sounds. Absent: distended, tenderness, guarding, rebound, rigid Psychiatric exam: Present: anxious Skin exam: Present: warm, dry, intact, normal color. Absent: rash <Dixon Lynn - Last Filed: 02/27/17 19:04> Medical Decision Making <Dixon Lynn - Last Filed: 02/27/17 19:04> <Max Gonzalez - Last Filed: 02/27/17 19:31> - Medical Decision Making Patient was medically cleared. Patient was evaluated by EPS and case discussed with psychiatrist. Patient be transferred to psychiatric facility. (Dixon Lynn) Patient reevaluated by myself, Dr. Gonzalez. Patient resting comfortably in bed. Patient admits to having suicidal thoughts. Patient admits to recently using drugs. Patient seen by mental health services who will transfer for psychiatric care. Positive clinical certificate completed. (Max Gonzalez) - Lab Data Lab Results 02/27/17 Range/Units 18:55 Urine Color Yellow Urine Appearance Clear (Clear) Urine pH 6.5 (5.0-8.0) Ur Specific [place] 1.017 (1.001-1.035) Urine Protein Trace H (Negative) Urine Glucose (UA) Negative (Negative) Urine Ketones Negative (Negative) Urine Blood Negative (Negative) Urine Nitrite Negative (Negative) Urine Bilirubin Negative (Negative) Urine Urobilinogen <2.0 (<2.0) mg/dL Ur Leukocyte Esterase Negative (Negative) Urine Opiates Screen Not Detected (NotDetected) Ur Oxycodone Screen Not Detected (NotDetected) Urine Methadone Screen Not Detected (NotDetected) Ur Propoxyphene Screen Not Detected (NotDetected) Ur Barbiturates Screen Not Detected (NotDetected) U Tricyclic Antidepress Not Detected (NotDetected) Ur Phencyclidine Scrn Not Detected (NotDetected) Ur Amphetamines Screen Not Detected (NotDetected) U Methamphetamines Scrn Not Detected (NotDetected) U Benzodiazepines Scrn Not Detected (NotDetected) Urine Cocaine Screen Not Detected (NotDetected) U Marijuana (THC) Screen Detected H (NotDetected) Disposition <Dixon Lynn - Last Filed: 02/27/17 19:04> <Max Gonzalez - Last Filed: 02/27/17 19:31> Clinical Impression: Bipolar disorder, Suicidal ideation Disposition: TRANSFER TO PSYCH HOSP/UNIT Condition: Stable Referrals: Dixon Walton DO [Primary Care Provider] - 1-2 days
[2017-02-27 19:15] LABS: Appearance,Urine Clear (Clear); Bilirubin,Urine Negative (Negative); Glucose,Urine (UA) Negative (Negative); Ketones,Urine Negative (Negative); Leukocyte Esterase,Urine Negative (Negative); Nitrite,Urine Negative (Negative); PH, Urine 6.5 (5.0-8.0); Protein,Urine Trace (Negative); Specific Gravity,Urine 1.017 (1.001-1.035); UA Billing (MACRO vs. MICRO) CHEM; Urobilinogen,Urine <2.0 mg/dL (<2.0)
[2017-02-27 19:31] LABS: Basophils % (A) 0 %; CH 31.2; CHCM 34.6; Eosinophils # (A) 0.2 k/uL (0-0.7); Eosinophils % (A) 3 %; HCT 42.2 % (39.0-53.0); HDW 2.29; Luc # (Auto) 0.12; Luc % (Auto) 2; Lymphocytes # (A) 1.1 k/uL (1.0-4.8); Lymphocytes % (A) 16 %; MCH 30.1 pg (25.0-35.0); MCHC 33.2 g/dL (31.0-37.0); MCV 90.6 fL (80.0-100.0); Mean Platelet Volume 6.5; Monocytes # (A) 0.4 k/uL (0-1.0); Monocytes % (A) 6 %; Neutrophils # (A) 4.9 k/uL (1.3-7.7); Neutrophils % (A) 73 %; RBC 4.65 m/uL (4.30-5.90); RDW 13.4 % (11.5-15.5); WBC 6.7 k/uL (3.8-10.6); WBC (Perox) 6.43
[2017-02-27 19:36] LABS: ALT 25 U/L (21-72); AST 27 U/L (17-59); Alkaline Phosphatase 82 U/L (38-126); Anion Gap 10 mmol/L; Blood Urea Nitrogen 12 mg/dL (9-20); Calcium 9.7 mg/dL (8.4-10.2); Carbon Dioxide 23 mmol/L (22-30); Chloride 105 mmol/L (98-107); Glucose 114 mg/dL (74-99); Non-African American GFR(MDRD) >60 (>60 ml/min/1.73 sqM); Potassium 3.9 mmol/L (3.5-5.1); Sodium 138 mmol/L (137-145); Total Bilirubin 0.6 mg/dL (0.2-1.3); Total Protein 7.1 g/dL (6.3-8.2)
[2017-02-28] MEDS ORDERED: busPIRone HCl 10 MG TAB PO STA (04:51)
[2017-02-28] MEDS ORDERED: BENZTROPINE MESYLATE 1 MG TAB PO STA (04:51)
[2017-02-28] MEDS ORDERED: NICOTINE 21MG/24HR PATCH TRANSDERM STA (04:53)
[2017-02-28 10:33] VITALS: BP 118/79; PULSE 100; RESP 16
== END 2017-02-28 10:39 ==
LOC: EC 17:27
DX: F31.9 Bipolar disorder, unspecified (principal); R45.851 Suicidal ideations; K02.9 Dental caries, unspecified; F41.9 Anxiety disorder, unspecified; R00.0 Tachycardia, unspecified; F25.9 Schizoaffective disorder, unspecified; F17.200 Nicotine dependence, unspecified, uncomplicated; Z79.899 Other long term (current) drug therapy; Z88.8 Allergy status to other drugs, medicaments and biological substances; Z81.8 Family history of other mental and behavioral disorders
CPT/HCPCS: 99285 ×2; 82075; 99284; 36415; 80053; 85025; 81003; 80306; S4990

== ENCOUNTER 2017-09-13 03:10 | Emergency (ER) | payer MEDICARE, OTHER ==
[2017-09-13 03:18] VITALS: TEMP 97.9
[2017-09-13] MEDS ORDERED: MAG HYDROX/AL HYDROX/SIMETH 30 ML, HYOSCYAMINE ELIXIR 10 ML, CIMETIDINE HCL 300 MG, LID... PO STA ×4 (04:53)
--- NOTE | 2017-09-13 04:55 | ED ---
Abdominal Pain HPI - General Chief Complaint: Abdominal Pain Stated Complaint: abd pain Time Seen by Provider: 09/13/17 03:46 Source: patient Mode of arrival: ambulatory Limitations: no limitations - History of Present Illness Initial Comments: This patient is a 37-year-old man who presents with complaint that he felt like he had something stuck that he had swallowed. I stated that he had eaten potato and then felt like it would not likely go down. By the time I had seen the patient he did state that he was feeling better and he was requesting something to eat and drink. I did observe him drinking fluids and he is not having any complaint anymore. MD Complaint: abdominal pain -: hour(s) Location: epigastric Radiation: none Migration to: no migration Severity: mild Quality: cramping Consistency: intermittent Improves With: nothing Worsens With: nothing Associated Symptoms: denies other symptoms - Related Data Home Medications Medication Instructions Recorded Confirmed Benztropine Mesylate [Cogentin] 2 mg PO DAILY 09/14/17 09/14/17 Melatonin 10 mg PO HS 09/14/17 09/14/17 Previous Rx's Medication Instructions Recorded Mag Hydrox/Al Hydrox/Simeth 10 ml PO Q4HR #1 bottle 09/14/17 [Maalox] Allergies Allergy/AdvReac Type Severity Reaction Status Date / Time ziprasidone AdvReac Muscle Verified 09/14/17 16:54 Rigidity Review of Systems ROS Statement: Those systems with pertinent positive or pertinent negative responses have been documented in the HPI. ROS Other: All systems not noted in ROS Statement are negative. Constitutional: Denies: fever, chills, weakness Respiratory: Denies: cough, dyspnea Cardiovascular: Denies: chest pain, palpitations Gastrointestinal: Reports: as per HPI, abdominal pain Genitourinary: Denies: dysuria, hematuria Musculoskeletal: Denies: back pain Skin: Denies: rash Past Medical History Past Medical History: No Reported History Additional Past Medical History / Comment(s): Schizoaffective disorder, bipolar; History of Any Multi-Drug Resistant Organisms: None Reported Past Surgical History: No Surgical Hx Reported Additional Past Surgical History / Comment(s): UNABLE TO OBTAIN, PT NONRESPONSIVE Past Anesthesia/Blood Transfusion Reactions: No Reported Reaction Past Psychological History: Bipolar, Depression, PTSD, Schizoaffective Disorder Smoking Status: Current every day smoker Past Alcohol Use History: Abuse Past Drug Use History: Marijuana, Opiates - Past Family History Father Additional Family Medical History / Comment(s): Father is alive at age 58 with no major medical problems. Mother Additional Family Medical History / Comment(s): Mother is alive in her early 60s with history of paranoid schizophrenia. Brother(s) Additional Family Medical History / Comment(s): He has 5 brothers and one is in senior living. He does not know their medical problems. Sister(s) Additional Family Medical History / Comment(s): Patient has 2 stepsisters and one adopted sister. He does not have any children. General Exam Limitations: no limitations General appearance: alert, in no apparent distress Head exam: Present: atraumatic, normocephalic Eye exam: Present: normal appearance. Absent: scleral icterus, conjunctival injection Respiratory exam: Present: normal lung sounds bilaterally. Absent: respiratory distress, wheezes, rales, rhonchi, stridor Cardiovascular Exam: Present: regular rate, normal rhythm, normal heart sounds. Absent: systolic murmur, diastolic murmur, rubs, gallop GI/Abdominal exam: Present: soft. Absent: distended, tenderness, guarding, rebound, rigid Extremities exam: Present: normal inspection, normal capillary refill. Absent: pedal edema, calf tenderness Back exam: Present: normal inspection. Absent: CVA tenderness (R), CVA tenderness (L) Neurological exam: Present: alert, normal gait Skin exam: Present: warm, dry, intact, normal color. Absent: rash Course Vital Signs 09/13/17 09/13/17 03:13 04:59 Temperature 97.9 F Pulse Rate 131 H 104 H Respiratory 18 20 Rate Blood Pressure 136/76 111/76 O2 Sat by Pulse 97 97 Oximetry Medical Decision Making - Medical Decision Making This patient is a 37-year-old man initially having epigastric pain. His symptoms have resolved, he did take oral intake without incident and he is feeling well and wants to go. His exam is unremarkable. Disposition Clinical Impression: Esophagitis Disposition: HOME SELF-CARE Condition: Good Instructions: Esophagitis (ED) Referrals: Dixon Walton DO [Primary Care Provider] - 1-2 days Isis Jain MD [STAFF PHYSICIAN] - 1-2 days
[2017-09-13 04:59] VITALS: BP 111/76; PULSE 104; RESP 20
== END 2017-09-13 04:59 | disposition home or self-care (01) ==
LOC: EC 03:10
DX: K20.9 Esophagitis, unspecified (principal); F17.200 Nicotine dependence, unspecified, uncomplicated; Z79.899 Other long term (current) drug therapy; Z88.8 Allergy status to other drugs, medicaments and biological substances; Z53.20 Procedure and treatment not carried out because of patient's decision for unspecified reasons
CPT/HCPCS: 99283

== ENCOUNTER 2017-09-14 16:17 | Emergency (ER) | payer OTHER ==
[2017-09-14 16:42] VITALS: BP 143/82; PULSE 98; RESP 20; TEMP 98.4
[2017-09-14] MEDS ORDERED: MAG HYDROX/AL HYDROX/SIMETH 30 ML, HYOSCYAMINE ELIXIR 10 ML, CIMETIDINE HCL 300 MG, LID... PO STA ×4 (16:56)
--- NOTE | 2017-09-14 17:04 | ED ---
ENT HPI - General Chief complaint: ENT Stated complaint: something caught in esophagus Time Seen by Provider: 09/14/17 16:46 Source: patient, RN notes reviewed Mode of arrival: ambulatory Limitations: no limitations - History of Present Illness Initial comments: This a 37-year-old male presents emergency Department with chief complaint of esophageal is irritation. Patient states that he was fearful days ago because he swallowed around potato states that he stuck in his throat. Patient states he feels much better after he drinks. He states he has no difficulty drinking. He does admit that he lays down he feels like acid running up into his throat. Patient denies any vomiting. Patient had evaluation a couple days ago which was negative. Patient states that has not taken any antacids denies fever , chills. He doesn't antibiotics especially when he drinks alcohol. He states that he has been sober. - Related Data Home Medications Medication Instructions Recorded Confirmed Benztropine Mesylate [Cogentin] 2 mg PO DAILY 09/14/17 09/14/17 Melatonin 10 mg PO HS 09/14/17 09/14/17 Previous Rx's Medication Instructions Recorded Mag Hydrox/Al Hydrox/Simeth 10 ml PO Q4HR #1 bottle 09/14/17 [Maalox] Allergies Allergy/AdvReac Type Severity Reaction Status Date / Time ziprasidone AdvReac Muscle Verified 09/14/17 16:54 Rigidity Review of Systems ROS Statement: Those systems with pertinent positive or pertinent negative responses have been documented in the HPI. ROS Other: All systems not noted in ROS Statement are negative. Past Medical History Past Medical History: No Reported History Additional Past Medical History / Comment(s): Schizoaffective disorder, bipolar; History of Any Multi-Drug Resistant Organisms: None Reported Past Surgical History: No Surgical Hx Reported Additional Past Surgical History / Comment(s): UNABLE TO OBTAIN, PT NONRESPONSIVE Past Anesthesia/Blood Transfusion Reactions: No Reported Reaction Past Psychological History: Bipolar, Depression, PTSD, Schizoaffective Disorder Smoking Status: Current every day smoker Past Alcohol Use History: Abuse Past Drug Use History: Marijuana, Opiates - Past Family History Father Additional Family Medical History / Comment(s): Father is alive at age 58 with no major medical problems. Mother Additional Family Medical History / Comment(s): Mother is alive in her early 60s with history of paranoid schizophrenia. Brother(s) Additional Family Medical History / Comment(s): He has 5 brothers and one is in senior care. He does not know their medical problems. Sister(s) Additional Family Medical History / Comment(s): Patient has 2 stepsisters and one adopted sister. He does not have any children. General Exam Limitations: no limitations General appearance: alert, in no apparent distress Head exam: Present: atraumatic, normocephalic, normal inspection Eye exam: Present: normal appearance, PERRL, EOMI. Absent: scleral icterus, conjunctival injection, periorbital swelling ENT exam: Present: normal exam, normal oropharynx, mucous membranes moist, TM's normal bilaterally, normal external ear exam, other (Patient drinking coffee in the room with no difficulty.) Neck exam: Present: normal inspection, full ROM. Absent: tenderness, meningismus, lymphadenopathy Respiratory exam: Present: normal lung sounds bilaterally. Absent: respiratory distress, wheezes, rales, rhonchi, stridor Cardiovascular Exam: Present: regular rate, normal rhythm, normal heart sounds. Absent: systolic murmur, diastolic murmur, rubs, gallop, clicks GI/Abdominal exam: Present: soft, normal bowel sounds. Absent: distended, tenderness, guarding, rebound, rigid Course Vital Signs 09/14/17 16:40 Temperature 98.4 F Pulse Rate 98 Respiratory 20 Rate Blood Pressure 143/82 O2 Sat by Pulse 100 Oximetry Medical Decision Making - Medical Decision Making 37-year-old male present emergency department chief complaint of esophageal pain , feeling of something stuck in his throat. Patient is able to swallow liquids in the room no difficulty. Patient given GI cocktail which helped. Patient discharged with Maalox. Return parameters discussed. Disposition Clinical Impression: Esophagitis Disposition: HOME SELF-CARE Condition: Stable Instructions: Esophagitis (ED) Additional Instructions: Please return to the Emergency Department if symptoms worsen or any other concerns. Prescriptions: Mag Hydrox/Al Hydrox/Simeth [Maalox] 10 ml PO Q4HR #1 bottle Referrals: Dixon Walton DO [Primary Care Provider] - 1-2 days
== END 2017-09-14 17:19 | disposition home or self-care (01) ==
LOC: EC 16:17
DX: K20.9 Esophagitis, unspecified (principal); F31.9 Bipolar disorder, unspecified; F25.9 Schizoaffective disorder, unspecified; F43.10 Post-traumatic stress disorder, unspecified; F17.200 Nicotine dependence, unspecified, uncomplicated; Z79.899 Other long term (current) drug therapy; Z88.8 Allergy status to other drugs, medicaments and biological substances
CPT/HCPCS: 99283

== ENCOUNTER 2017-09-16 03:17 | Emergency (ER) | payer OTHER ==
[2017-09-16 03:27] VITALS: BP 131/78; PULSE 118; RESP 16
[2017-09-16] MEDS ORDERED: MAG HYDROX/AL HYDROX/SIMETH 30 ML, HYOSCYAMINE ELIXIR 10 ML, CIMETIDINE HCL 300 MG, LID... PO STA ×4 (03:32)
--- NOTE | 2017-09-16 03:35 | ED ---
General Adult HPI - General Chief complaint: ENT Stated complaint: poss FB in throat Time Seen by Provider: 09/16/17 03:30 Source: patient, RN notes reviewed Mode of arrival: ambulatory Limitations: no limitations - History of Present Illness Initial comments: Patient 37-year-old male who presents emergency room today with chief complaint of increased irritation to the esophagus. He does admit that he was eating potato earlier in the week. He states feels like it did not go down the right way. He does admit that he's been seen here multiple times now for this. Was given GI cocktail which helped his symptoms. He states seems to be improving. He states tried follow-up family doctor about this. He was given some Maalox which is been using along with Prilosec. He states still having the sensation but is tolerating food and liquids. He states he came here to get a GI cocktail to help with the pain tonight. He denies any other complaints or symptoms. Patient denies any recent fever, chills, shortness of breath, chest pain, back pain, numbness or tingling, headaches or visual changes, or any other complaints. - Related Data Home Medications Medication Instructions Recorded Confirmed Benztropine Mesylate [Cogentin] 2 mg PO DAILY 09/14/17 09/14/17 Melatonin 10 mg PO HS 09/14/17 09/14/17 Previous Rx's Medication Instructions Recorded Mag Hydrox/Al Hydrox/Simeth 10 ml PO Q4HR #1 bottle 09/14/17 [Maalox] Allergies Allergy/AdvReac Type Severity Reaction Status Date / Time ziprasidone AdvReac Muscle Verified 09/14/17 16:54 Rigidity Review of Systems ROS Statement: Those systems with pertinent positive or pertinent negative responses have been documented in the HPI. ROS Other: All systems not noted in ROS Statement are negative. Past Medical History Past Medical History: No Reported History Additional Past Medical History / Comment(s): Schizoaffective disorder, bipolar; History of Any Multi-Drug Resistant Organisms: None Reported Past Surgical History: No Surgical Hx Reported Additional Past Surgical History / Comment(s): UNABLE TO OBTAIN, PT NONRESPONSIVE Past Anesthesia/Blood Transfusion Reactions: No Reported Reaction Past Psychological History: Bipolar, Depression, PTSD, Schizoaffective Disorder Smoking Status: Current every day smoker Past Alcohol Use History: Abuse Past Drug Use History: Marijuana, Opiates - Past Family History Father Additional Family Medical History / Comment(s): Father is alive at age 58 with no major medical problems. Mother Additional Family Medical History / Comment(s): Mother is alive in her early 60s with history of paranoid schizophrenia. Brother(s) Additional Family Medical History / Comment(s): He has 5 brothers and one is in halfway. He does not know their medical problems. Sister(s) Additional Family Medical History / Comment(s): Patient has 2 stepsisters and one adopted sister. He does not have any children. General Exam - General Exam Comments Initial Comments: General: The patient is awake and alert, in no distress, and does not appear acutely ill. Eye: Pupils are equal, round and reactive to light, extra-ocular movements are intact. No nystagmus. There is normal conjunctiva bilaterally. No signs of icterus. Ears, nose, mouth and throat: There are moist mucous membranes and no oral lesions. Neck: The neck is supple, there is no tenderness or JVD. Cardiovascular: There is a regular rate and rhythm. No murmur, rub or gallop is appreciated. Respiratory: Lungs are clear to auscultation, respirations are non-labored, breath sounds are equal. No wheezes, stridor, rales, or rhonchi. Gastrointestinal: Soft, non-distended, non-tender abdomen without masses or organomegaly noted. There is no rebound or guarding present. No CVA tenderness. Bowel sounds are unremarkable. Musculoskeletal: Normal ROM, no tenderness. Strength 5/5. Sensation intact. Pulses equal bilaterally 2+. Neurological: A&O x 3. CN II-XII intact, There are no obvious motor or sensory deficits. Coordination appears grossly intact. Speech is normal. Skin: Skin is warm and dry and no rashes or lesions are noted. Psychiatric: Cooperative, appropriate mood & affect, normal judgment. Limitations: no limitations Course Vital Signs 09/16/17 03:20 Pulse Rate 118 H Respiratory 16 Rate Blood Pressure 131/78 O2 Sat by Pulse 98 Oximetry Medical Decision Making - Medical Decision Making Patient given GI cocktail here in the emergency room which didn't improve his symptoms. He'll be discharged home given GI to follow-up with. Advised return if any symptoms increase worsen. Disposition Clinical Impression: Sensation of foreign body in esophagus Disposition: HOME SELF-CARE Condition: Good Instructions: Esophageal Foreign Body (ED) Additional Instructions: Please follow-up GI has discussed over the next 1-2 days. Please return here to the emergency room symptoms increase worsen or for any other concerns. Please continue present prescribed medications. Referrals: Dixon Walton DO [Primary Care Provider] - 1-2 days Isis Jain MD [STAFF PHYSICIAN] - 1-2 days Time of Disposition: 03:34
== END 2017-09-16 03:40 | disposition home or self-care (01) ==
LOC: EC 03:17
DX: R09.89 Other specified symptoms and signs involving the circulatory and respiratory systems (principal); F17.200 Nicotine dependence, unspecified, uncomplicated; Z79.899 Other long term (current) drug therapy; Z88.8 Allergy status to other drugs, medicaments and biological substances
CPT/HCPCS: 99283

== ENCOUNTER 2018-03-02 20:46 | Emergency (ER) | payer OTHER ==
[2018-03-02] MEDS ORDERED: SODIUM CHLORIDE 0.9% 2,000 ML IV STA (21:00)
[2018-03-02 21:23] LABS: ALT 61 U/L (21-72); AST 75 U/L (17-59); Acetaminophen <10.0 ug/mL; Albumin 4.3 g/dL (3.5-5.0); Alcohol 140 mg/dL; Alkaline Phosphatase 59 U/L (38-126); Anion Gap 13 mmol/L; Blood Urea Nitrogen 11 mg/dL (9-20); Calcium 8.8 mg/dL (8.4-10.2); Carbon Dioxide 22 mmol/L (22-30); Chloride 105 mmol/L (98-107); Glucose 137 mg/dL (74-99); Salicylate <1.0 mg/dL; Sodium 140 mmol/L (137-145); Total Bilirubin 0.7 mg/dL (0.2-1.3); Total Protein 6.4 g/dL (6.3-8.2)
--- NOTE | 2018-03-02 21:23 | XR ---
EXAMINATION TYPE: XR chest 2V DATE OF EXAM: 03/02/2018 COMPARISON: 10/11/2016 HISTORY: Pneumonia TECHNIQUE: Frontal and lateral views of the chest are obtained. FINDINGS: There is no heart failure nor confluent pneumonic infiltrate. Costophrenic angles are karey r. Heart size is normal. There is no pleural effusion. Bony thorax is intact. IMPRESSION: Normal chest. No change.
[2018-03-02 21:26] LABS: Potassium 5.5 mmol/L (3.5-5.1)
[2018-03-02 21:30] LABS: Basophils # (A) 0.1 k/uL (0-0.2); Basophils % (A) 1 %; Eosinophils # (A) 0.6 k/uL (0-0.7); Eosinophils % (A) 6 %; HCT 50.6 % (39.0-53.0); HGB 16.6 gm/dL (13.0-17.5); Lymphocytes # (A) 3.3 k/uL (1.0-4.8); Lymphocytes % (A) 33 %; MCH 31.3 pg (25.0-35.0); MCHC 32.8 g/dL (31.0-37.0); MCV 95.3 fL (80.0-100.0); Mean Platelet Volume 6.7; Monocytes # (A) 0.5 k/uL (0-1.0); Monocytes % (A) 5 %; Neutrophils # (A) 5.4 k/uL (1.3-7.7); Neutrophils % (A) 54 %; Platelet Count 268 k/uL (150-450); RBC 5.31 m/uL (4.30-5.90); RDW 13.5 % (11.5-15.5); WBC 10.1 k/uL (3.8-10.6)
[2018-03-02] MEDS ORDERED: ONDANSETRON 4 MG/2 ML VIAL IVP STA (23:41)
--- NOTE | 2018-03-03 00:55 | CT ---
EXAMINATION TYPE: CT brain wo con DATE OF EXAM: 03/03/2018 COMPARISON: 03/24/2014 HISTORY: heroin overdose CT DLP: 1098.80 mGycm. Automated Exposure Control for Dose Reduction was Utilized. TECHNIQUE: CT scan of the head is performed without contrast. FINDINGS: Ventricles of normal size. There is no mass effect nor midline shift. There is no sign of intracranial hemorrhage. There is some mucosal thickening in the ethmoid and maxillary sinuses with fluid levels. There is no evidence of cerebral edema. IMPRESSION: There is sinusitis that is new compared to old exam. Negative CT scan of the brain.
--- NOTE | 2018-03-03 00:55 | ED ---
Overdose HPI - General Source: police, EMS Mode of arrival: EMS Limitations: altered mental status <Les Bacon - Last Filed: 03/03/18 00:59> <Bebeto Dan - Last Filed: 03/03/18 03:04> - General Chief Complaint: Overdose Stated Complaint: Overdose Time Seen by Provider: 03/02/18 20:56 - History of Present Illness Initial Comments: 37 years old male was brought in by ambulance they found him almost unresponsive in the street, he was giving Narcan 2 mg then he was repeated later and he became unresponsive and 1 warm and one more milligram was given that woke him up on arrival he was still confused he was able to follow the commands he was coughing him a no clear review of system is available, I was told by the EMS to 22 did heroin overdose (Les Bacon) - Related Data Home Medications Medication Instructions Recorded Confirmed Benztropine Mesylate [Cogentin] 2 mg PO BID 09/14/17 03/02/18 ARIPiprazole [Abilify Maintena] 300 mg IM Q28D 03/02/18 03/02/18 Ferrous Sulfate [Feosol] 325 mg PO DAILY 03/02/18 03/02/18 Lidocaine 4% Cream [Lmx 4] 1 applic TOPICAL BID PRN 03/02/18 03/02/18 Melatonin 5 mg PO HS 03/02/18 03/02/18 Omeprazole Unknown Dose 1 tab PO DAILY 03/02/18 03/02/18 Propranolol [Inderal] 20 mg PO TID 03/02/18 03/02/18 busPIRone HCL 15 mg PO TID 03/02/18 03/02/18 diphenhydrAMINE [Benadryl] 25 mg PO HS 03/02/18 03/02/18 Allergies Allergy/AdvReac Type Severity Reaction Status Date / Time ziprasidone AdvReac Muscle Verified 03/02/18 21:12 Rigidity Review of Systems ROS Other: All systems not noted in ROS Statement are negative. <Les Bacon - Last Filed: 03/03/18 00:59> ROS Other: All systems not noted in ROS Statement are negative. <Bebeto Dan - Last Filed: 03/03/18 03:04> ROS Statement: Those systems with pertinent positive or pertinent negative responses have been documented in the HPI. Past Medical History Past Medical History: No Reported History Additional Past Medical History / Comment(s): Schizoaffective disorder, bipolar; History of Any Multi-Drug Resistant Organisms: None Reported Past Surgical History: No Surgical Hx Reported Additional Past Surgical History / Comment(s): UNABLE TO OBTAIN, PT NONRESPONSIVE Past Anesthesia/Blood Transfusion Reactions: No Reported Reaction Past Psychological History: Bipolar, Depression, PTSD, Schizoaffective Disorder Smoking Status: Current every day smoker Past Alcohol Use History: Abuse Past Drug Use History: Heroin, Marijuana, Opiates - Past Family History Father Additional Family Medical History / Comment(s): Father is alive at age 58 with no major medical problems. Mother Additional Family Medical History / Comment(s): Mother is alive in her early 60s with history of paranoid schizophrenia. Brother(s) Additional Family Medical History / Comment(s): He has 5 brothers and one is in residential. He does not know their medical problems. Sister(s) Additional Family Medical History / Comment(s): Patient has 2 stepsisters and one adopted sister. He does not have any children. <Les Bacon - Last Filed: 03/03/18 00:59> General Exam Limitations: altered mental status <Les Bacon - Last Filed: 03/03/18 00:59> <Bebeto Dan - Last Filed: 03/03/18 03:04> - General Exam Comments Initial Comments: General: The patient is awake , confused able to follow commands, coughing I suspect aspiration Skin: Skin is warm and dry and no rashes or lesions are noted. Eye: Pupils are equal, round and reactive to light, Ears, nose, mouth and throat: There are moist mucous membranes and no oral lesions. Neck: The neck is supple, there is no tenderness Cardiovascular: There is a regular rate and rhythm. No murmur, rub or gallop is appreciated. Respiratory: To auscultation bilateral, no wheezing no rhonchi no distress respiratory desouza noticed Gastrointestinal: Soft, non-distended, non-tender abdomen without masses or organomegaly noted. There is no rebound or guarding present. Bowel sounds are unremarkable. Back: There is no tenderness to palpation in the midline. There is no obvious deformity. Musculoskeletal: Normal ROM, no tenderness, There is no pedal edema. There is no calf tenderness or swelling. No cords were appreciated. Neurological: CN II-XII intact, Cranial nerves III through XII are intact. There are no obvious motor or sensory deficits. Coordination appears grossly intact. Speech is normal. Psychiatric: Cooperative, confused (Les Bacon) Course <Les Bacon - Last Filed: 03/03/18 00:59> <Bebeto Dan - Last Filed: 03/03/18 03:04> Vital Signs 03/02/18 03/02/18 03/02/18 20:54 22:02 22:29 Pulse Rate 74 93 100 Respiratory 18 14 16 Rate Blood Pressure 102/67 117/77 118/80 O2 Sat by Pulse 92 L 91 L 95 Oximetry Labs reveal CBC unremarkable potassium is 5.5 he had a 2 L of fluids lactate is 2.2 compressive metabolic panel is unremarkable urine drug screen was negative as far as acetaminophen or aspirin is considered (Les Bacon) - Reevaluation(s) Reevaluation #1: Head CT is normal head CT revealed sinusitis, patient endorsed to Dr dan at 1258 am 03/03/18 00:57 03/03/18 00:57 03/03/18 00:59 EKG is normal sinus ventricular rate is 91 AK interval is 142 QRS duration is 80 QT/QTc is 360/442 review of this EKG does not reveal any ST elevation or ST depression (Les Bacon) Medical Decision Making - Lab Data Result diagrams: 03/02/18 21:00 03/02/18 21:00 <Les Bacon - Last Filed: 03/03/18 00:59> - Lab Data Result diagrams: 03/02/18 21:00 03/02/18 21:00 <Bebeto Dan - Last Filed: 03/03/18 03:04> - Medical Decision Making Patient reevaluated after sign out, he is alert and oriented, normal oxygenation and vital signs. No respiratory distress. He did receive Narcan was observed in the emergency department. Alcohol level was elevated, this was repeated and was below the legal limit. Patient is ambulatory, no gait abnormalities. He is tolerating liquids in the emergency department. He will be discharged with outpatient follow-up. Patient states this was a recreational overdose, no suicidal ideation. ( Bebeto Dan) - Lab Data Lab Results 03/02/18 03/02/18 03/02/18 Range/Units 21:00 21:00 22:00 WBC 10.1 (3.8-10.6) k/uL RBC 5.31 (4.30-5.90) m/uL Hgb 16.6 (13.0-17.5) gm/dL Hct 50.6 (39.0-53.0) % MCV 95.3 (80.0-100.0) fL MCH 31.3 (25.0-35.0) pg MCHC 32.8 (31.0-37.0) g/dL RDW 13.5 (11.5-15.5) % Plt Count 268 (150-450) k/uL Neutrophils % 54 % Lymphocytes % 33 % Monocytes % 5 % Eosinophils % 6 % Basophils % 1 % Neutrophils # 5.4 (1.3-7.7) k/uL Lymphocytes # 3.3 (1.0-4.8) k/uL Monocytes # 0.5 (0-1.0) k/uL Eosinophils # 0.6 (0-0.7) k/uL Basophils # 0.1 (0-0.2) k/uL Sodium 140 (137-145) mmol/L Potassium 5.5 H (3.5-5.1) mmol/L Chloride 105 (98-107) mmol/L Carbon Dioxide 22 (22-30) mmol/L Anion Gap 13 mmol/L BUN 11 (9-20) mg/dL Creatinine 1.20 (0.66-1.25) mg/dL Est GFR (CKD-EPI)AfAm >90 (>60 ml/min/1.73 sqM) Est GFR (CKD-EPI)NonAf 78 (>60 ml/min/1.73 sqM) Glucose 137 H (74-99) mg/dL Lactic Ac Sepsis Rflx Plasma Lactic Acid Adam 2.2 H* (0.7-2.0) mmol/L Calcium 8.8 (8.4-10.2) mg/dL Total Bilirubin 0.7 (0.2-1.3) mg/dL AST 75 H (17-59) U/L ALT 61 (21-72) U/L Alkaline Phosphatase 59 (38-126) U/L Total Protein 6.4 (6.3-8.2) g/dL Albumin 4.3 (3.5-5.0) g/dL Salicylates <1.0 mg/dL Acetaminophen <10.0 ug/mL Serum Alcohol 140 mg/dL 03/02/18 03/03/18 Range/Units 22:40 02:09 WBC (3.8-10.6) k/uL RBC (4.30-5.90) m/uL Hgb (13.0-17.5) gm/dL Hct (39.0-53.0) % MCV (80.0-100.0) fL MCH (25.0-35.0) pg MCHC (31.0-37.0) g/dL RDW (11.5-15.5) % Plt Count (150-450) k/uL Neutrophils % % Lymphocytes % % Monocytes % % Eosinophils % % Basophils % % Neutrophils # (1.3-7.7) k/uL Lymphocytes # (1.0-4.8) k/uL Monocytes # (0-1.0) k/uL Eosinophils # (0-0.7) k/uL Basophils # (0-0.2) k/uL Sodium (137-145) mmol/L Potassium (3.5-5.1) mmol/L Chloride (98-107) mmol/L Carbon Dioxide (22-30) mmol/L Anion Gap mmol/L BUN (9-20) mg/dL Creatinine (0.66-1.25) mg/dL Est GFR (CKD-EPI)AfAm (>60 ml/min/1.73 sqM) Est GFR (CKD-EPI)NonAf (>60 ml/min/1.73 sqM) Glucose (74-99) mg/dL Lactic Ac Sepsis Rflx Y Plasma Lactic Acid Adam (0.7-2.0) mmol/L Calcium (8.4-10.2) mg/dL Total Bilirubin (0.2-1.3) mg/dL AST (17-59) U/L ALT (21-72) U/L Alkaline Phosphatase (38-126) U/L Total Protein (6.3-8.2) g/dL Albumin (3.5-5.0) g/dL Salicylates mg/dL Acetaminophen ug/mL Serum Alcohol 35 mg/dL Disposition <Les Bacon - Last Filed: 03/03/18 00:59> Is patient prescribed a controlled substance at d/c from ED?: No Time of Disposition: 03:04 <Bebeto Dan - Last Filed: 03/03/18 03:04> Clinical Impression: Drug overdose, Opiate overdose Disposition: HOME SELF-CARE Condition: Fair Instructions: Opioid Overdose (ED) Additional Instructions: Please follow up with primary care physician. Referrals: None,Stated [Primary Care Provider] - 1-2 days
[2018-03-03 03:07] VITALS: BP 127/70; PULSE 71; RESP 18
[2018-03-03 03:14] LABS: Amphetamine Screen,Urine Not Detected (NotDetected); Barbiturate Screen,Urine Not Detected (NotDetected); Benzodiazepines Screen,Urine Not Detected (NotDetected); Cocaine Screen,Urine Not Detected (NotDetected); Methadone Screen, Urine Not Detected (NotDetected); Opiate Screen,Urine Detected (NotDetected); Oxycodone Screen, Urine Not Detected (NotDetected); Phencyclidine Screen,Urine Not Detected (NotDetected); Tricyclic Antidepressant,Urine Not Detected (NotDetected); Urn Cannabinoid Scrn Detected (NotDetected)
[2018-03-03] MEDS ORDERED: ONDANSETRON ODT 4 MG TAB PO STA (04:16)
[2018-03-03] MEDS ORDERED: ACETAMINOPHEN TAB 500 MG TAB PO STA (04:23)
== END 2018-03-03 09:40 | disposition home or self-care (01) ==
LOC: EEVIPCON 20:46 → EC 20:46
DX: T40.601A Poisoning by unspecified narcotics, accidental (unintentional), initial encounter (principal); R41.0 Disorientation, unspecified; F31.9 Bipolar disorder, unspecified; F43.10 Post-traumatic stress disorder, unspecified; F25.9 Schizoaffective disorder, unspecified; F17.200 Nicotine dependence, unspecified, uncomplicated; Z79.899 Other long term (current) drug therapy; Z88.8 Allergy status to other drugs, medicaments and biological substances
CPT/HCPCS: 36415 ×2; 93005; 80053; 83605; 85025; 80306; 83520 ×2; 80320 ×2; 71046; 70450; 99285; 96374; 96361 ×2; J2405

== ENCOUNTER 2019-07-10 16:52 | Emergency (ER) | payer OTHER ==
[2019-07-10] MEDS ORDERED: LORazepam 1 MG TAB PO STA (18:08)
[2019-07-10] MEDS ORDERED: NICOTINE 21MG/24HR PATCH TRANSDERM STA (18:53)
[2019-07-10 19:49] LABS: Appearance,Urine Clear (Clear); Bilirubin,Urine Negative (Negative); Blood,Urine Negative (Negative); Color,Urine Light Yellow; Glucose,Urine (UA) Negative (Negative); Ketones,Urine Negative (Negative); Leukocyte Esterase,Urine Negative (Negative); Nitrite,Urine Negative (Negative); PH, Urine 6.5 (5.0-8.0); Protein,Urine Negative (Negative); Specific Gravity,Urine 1.004 (1.001-1.035); Urobilinogen,Urine <2.0 mg/dL (<2.0)
[2019-07-10 19:59] LABS: Cocaine Screen,Urine Not Detected (NotDetected); Opiate Screen,Urine Not Detected (NotDetected); Phencyclidine Screen,Urine Not Detected (NotDetected); Urn Cannabinoid Scrn Detected (NotDetected)
[2019-07-10 20:00] LABS: Amphetamine Screen,Urine Detected (NotDetected); Barbiturate Screen,Urine Not Detected (NotDetected); Benzodiazepines Screen,Urine Not Detected (NotDetected); Methadone Screen, Urine Not Detected (NotDetected); Oxycodone Screen, Urine Not Detected (NotDetected); Tricyclic Antidepressant,Urine Not Detected (NotDetected)
--- NOTE | 2019-07-10 23:07 | ED ---
Psych HPI - General Source: patient Mode of arrival: ambulatory <Mi Coburn - Last Filed: 07/11/19 01:39> <Bebeto Servin - Last Filed: 07/11/19 14:14> - General Chief Complaint: Psychiatric Symptoms Stated Complaint: EPS eval Time Seen by Provider: 07/10/19 17:10 - History of Present Illness Initial Comments: The patient is a 38-year-old male with past medical history of schizoaffective disorder and bipolar disorder who presents emergency department after he was sent over from [facility]. It was reported that the patient was at [facility] was de monstrating manic behavior. He is combative and therefore EMS was called to transfer the patient to the hospital. I attempt to evaluate the patient and he states that he is concerned that his is . He states that this has been causing extreme stress. The patient does not elaborate further than this. He will get easily distracted with tangential thoughts. I question him how long he has felt like this and he cannot answer me. I asked him what his home medications are and he can only remember BuSpar. He is unsure if he is taking it. The patient does not know his address. He denies any pain. No recent fevers or chills. Denies any headaches or visual changes. No recent blunt head trauma. I do have to redirect the patient multiple times however I'm still unable to obtain a thorough history. The remainder of the HPI is limited to the patient's current mental state. He denies any auditory or visual hallucinations. Denies any suicidal ideations or homicidal ideations. (Mi Coburn) - Related Data Home Medications Medication Instructions Recorded Confirmed ARIPiprazole [Abilify Maintena] 300 mg IM Q28D 03/02/18 07/10/19 Lidocaine 4% Cream [Lmx 4] 1 applic TOPICAL BID PRN 03/02/18 07/10/19 Melatonin 5 mg PO HS 03/02/18 07/10/19 Omeprazole Unknown Dose 1 tab PO DAILY 03/02/18 07/10/19 diphenhydrAMINE [Benadryl] 25 mg PO HS PRN 03/02/18 07/10/19 Propranolol [Inderal] 40 mg PO BID 07/10/19 07/10/19 Vivitrol 380mg 380 mg IM Q28D 07/10/19 07/10/19 busPIRone HCL 15 mg PO BID 07/10/19 07/10/19 Allergies Allergy/AdvReac Type Severity Reaction Status Date / Time ziprasidone AdvReac Muscle Verified 07/10/19 21:46 Rigidity Review of Systems ROS Other: All systems not noted in ROS Statement are negative. <Mi Coburn - Last Filed: 07/11/19 01:39> ROS Other: All systems not noted in ROS Statement are negative. <Bebeto Servin - Last Filed: 07/11/19 14:14> ROS Statement: Those systems with pertinent positive or pertinent negative responses have been documented in the HPI. Past Medical History Past Medical History: No Reported History Additional Past Medical History / Comment(s): Schizoaffective disorder, bipolar; History of Any Multi-Drug Resistant Organisms: None Reported Past Surgical History: No Surgical Hx Reported Additional Past Surgical History / Comment(s): UNABLE TO OBTAIN, PT NONRESPONSIVE Past Anesthesia/Blood Transfusion Reactions: No Reported Reaction Past Psychological History: Bipolar, Depression, PTSD, Schizoaffective Disorder Smoking Status: Current every day smoker Past Alcohol Use History: Abuse Past Drug Use History: Heroin, Marijuana, Opiates - Past Family History Father Additional Family Medical History / Comment(s): Father is alive at age 58 with no major medical problems. Mother Additional Family Medical History / Comment(s): Mother is alive in her early 60s with history of paranoid schizophrenia. Brother(s) Additional Family Medical History / Comment(s): He has 5 brothers and one is in longterm. He does not know their medical problems. Sister(s) Additional Family Medical History / Comment(s): Patient has 2 stepsisters and one adopted sister. He does not have any children. <Mi Coburn - Last Filed: 07/11/19 01:39> General Exam Limitations: no limitations General appearance: alert, in no apparent distress, anxious Head exam: Present: atraumatic, normocephalic, normal inspection Eye exam: Present: normal appearance, PERRL, EOMI. Absent: scleral icterus, conjunctival injection, periorbital swelling ENT exam: Present: normal exam, mucous membranes moist Neck exam: Present: normal inspection. Absent: tenderness, meningismus, lymphadenopathy Respiratory exam: Present: normal lung sounds bilaterally. Absent: respiratory distress, wheezes, rales, rhonchi, stridor Cardiovascular Exam: Present: regular rate, normal rhythm, normal heart sounds. Absent: systolic murmur, diastolic murmur, rubs, gallop, clicks GI/Abdominal exam: Present: soft, normal bowel sounds. Absent: distended, te nderness, guarding, rebound, rigid Extremities exam: Present: normal inspection, full ROM, normal capillary refill. Absent: tenderness, pedal edema, joint swelling, calf tenderness Back exam: Present: normal inspection Neurological exam: Present: alert, oriented X3, CN II-XII intact Psychiatric exam: Present: anxious, manic Skin exam: Present: warm, dry, intact, normal color. Absent: rash <Mi Coburn - Last Filed: 07/11/19 01:39> Course <Bebeto Servin - Last Filed: 07/11/19 14:14> Vital Signs 07/10/19 07/10/19 07/10/19 17:08 18:57 19:30 Temperature 98.2 F Pulse Rate 106 H 98 88 Respiratory 18 22 18 Rate Blood Pressure 127/97 125/84 116/68 O2 Sat by Pulse 98 98 99 Oximetry 07/11/19 07/11/19 07/11/19 05:03 09:29 12:00 Temperature 98.6 F Pulse Rate 92 81 78 Respiratory 16 18 18 Rate Blood Pressure 97/58 115/71 131/70 O2 Sat by Pulse 98 97 100 Oximetry - Reevaluation(s) Reevaluation #1: 07/11/19 14:14 Patient rested comfortably throughout the morning and afternoon. Patient was evaluated by psychiatric service will be [facility]. [facility] will send transportation to get the patient. (Bebeto Servin) Medical Decision Making - Lab Data Result diagrams: 07/10/19 23:26 07/10/19 23:26 <Mi Coburn - Last Filed: 07/11/19 01:39> - Lab Data Result diagrams: 07/10/19 23:26 07/10/19 23:26 <Bebeto Servin - Last Filed: 07/11/19 14:14> - Medical Decision Making Upon arrival the patient was placed into room 13. I do attempt to obtain a history on the patient however he is very hard to redirect. I do order a UDS on the patient's which returns and is positive for amphetamines, methamphetamines and marijuana. I did recommend EPS evaluation. EPS does evaluate the patient do agree that he needs inpatient placement. I do to fill out a certification on the patient. Patient does have the insurance and therefore we are currently aw aiting placement. PA does request that the patient have a CBC, CMP and TSH drawn. I did review these laboratory studies and they are unremarkable. She was given 1 mg of Ativan for his anxiety. He is also requesting a nicotine patch. The patient remained in stable condition awaiting placement (Mi Coburn) - Lab Data Lab Results 07/10/19 07/10/19 07/10/19 Range/Units 19:03 23:26 23:26 WBC 5.6 (3.8-10.6) k/uL RBC 4.97 (4.30-5.90) m/uL Hgb 14.7 (13.0-17.5) gm/dL Hct 43.9 (39.0-53.0) % MCV 88.2 (80.0-100.0) fL MCH 29.5 (25.0-35.0) pg MCHC 33.5 (31.0-37.0) g/dL RDW 12.7 (11.5-15.5) % Plt Count 270 (150-450) k/uL Neutrophils % 55 % Lymphocytes % 27 % Monocytes % 9 % Eosinophils % 4 % Basophils % 1 % Neutrophils # 3.0 (1.3-7.7) k/uL Lymphocytes # 1.5 (1.0-4.8) k/uL Monocytes # 0.5 (0-1.0) k/uL Eosinophils # 0.2 (0-0.7) k/uL Basophils # 0.1 (0-0.2) k/uL Sodium 139 (137-145) mmol/L Potassium 3.8 (3.5-5.1) mmol/L Chloride 105 (98-107) mmol/L Carbon Dioxide 25 (22-30) mmol/L Anion Gap 9 mmol/L BUN 10 (9-20) mg/dL Creatinine 0.79 (0.66-1.25) mg/dL Est GFR (CKD-EPI)AfAm >90 (>60 ml/min/1.73 sqM) Est GFR (CKD-EPI)NonAf >90 (>60 ml/min/1.73 sqM) Glucose 110 H (74-99) mg/dL Calcium 9.3 (8.4-10.2) mg/dL Total Bilirubin 0.6 (0.2-1.3) mg/dL AST 43 (17-59) U/L ALT 41 (21-72) U/L Alkaline Phosphatase 83 (38-126) U/L Total Protein 6.7 (6.3-8.2) g/dL Albumin 4.1 (3.5-5.0) g/dL TSH 1.830 (0.465-4.680) mIU/L Urine Color Light Yellow Urine Appearance Clear (Clear) Urine pH 6.5 (5.0-8.0) Ur Specific [place] 1.004 (1.001-1.035) Urine Protein Negative (Negative) Urine Glucose (UA) Negative (Negative) Urine Ketones Negative (Negative) Urine Blood Negative (Negative) Urine Nitrite Negative (Negative) Urine Bilirubin Negative (Negative) Urine Urobilinogen <2.0 (<2.0) mg/dL Ur Leukocyte Esterase Negative (Negative) Urine Opiates Screen Not Detected (NotDetected) Ur Oxycodone Screen Not Detected (NotDetected) Urine Methadone Screen Not Detected (NotDetected) Ur Propoxyphene Screen Not Detected (NotDetected) Ur Barbiturates Screen Not Detected (NotDetected) U Tricyclic Antidepress Not Detected (NotDetected) Ur Phencyclidine Scrn Not Detected (NotDetected) Ur Amphetamines Screen Detected H (NotDetected) U Methamphetamines Scrn Detected H (NotDetected) U Benzodiazepines Scrn Not Detected (NotDetected) Urine Cocaine Screen Not Detected (NotDetected) U Marijuana (THC) Screen Detected H (NotDetected) Disposition <Mi Coburn - Last Filed: 07/11/19 01:39> <Bebeto Servin - Last Filed: 07/11/19 14:14> Clinical Impression: Bipolar disorder, most recent episode manic Disposition: TRANSFER TO PSYCH HOSP/UNIT Condition: Stable Referrals: [facility],Clinic [Primary Care Provider] - 1-2 days
[2019-07-11] LABS: Basophils # (A) 0.1 k/uL (0-0.2); Basophils % (A) 1 %; Eosinophils # (A) 0.2 k/uL (0-0.7); Eosinophils % (A) 4 %; HCT 43.9 % (39.0-53.0); HGB 14.7 gm/dL (13.0-17.5); Lymphocytes # (A) 1.5 k/uL (1.0-4.8); Lymphocytes % (A) 27 %; MCH 29.5 pg (25.0-35.0); MCHC 33.5 g/dL (31.0-37.0); MCV 88.2 fL (80.0-100.0); Mean Platelet Volume 6.3; Monocytes # (A) 0.5 k/uL (0-1.0); Monocytes % (A) 9 %; Neutrophils % (A) 55 %; Platelet Count 270 k/uL (150-450); RBC 4.97 m/uL (4.30-5.90); RDW 12.7 % (11.5-15.5); WBC 5.6 k/uL (3.8-10.6)
[2019-07-11 00:01] LABS: ALT 41 U/L (21-72); AST 43 U/L (17-59); African American GFR (CKD) >90 (>60 ml/min/1.73 sqM); Albumin 4.1 g/dL (3.5-5.0); Alkaline Phosphatase 83 U/L (38-126); Anion Gap 9 mmol/L; Blood Urea Nitrogen 10 mg/dL (9-20); Calcium 9.3 mg/dL (8.4-10.2); Carbon Dioxide 25 mmol/L (22-30); Chloride 105 mmol/L (98-107); Glucose 110 mg/dL (74-99); Potassium 3.8 mmol/L (3.5-5.1); Sodium 139 mmol/L (137-145); Total Bilirubin 0.6 mg/dL (0.2-1.3); Total Protein 6.7 g/dL (6.3-8.2)
[2019-07-11 05:07] VITALS: TEMP 98.6
[2019-07-11 09:30] VITALS: RESP 18
[2019-07-11 12:34] VITALS: BP 131/70; PULSE 78
[2019-07-11] MEDS ORDERED: NICOTINE POLACRILEX 2 MG GUM BUCCAL PRN (12:51)
== END 2019-07-11 15:50 ==
LOC: EC 16:52
DX: F31.9 Bipolar disorder, unspecified (principal); F41.9 Anxiety disorder, unspecified; F20.0 Paranoid schizophrenia; F17.200 Nicotine dependence, unspecified, uncomplicated; F10.10 Alcohol abuse, uncomplicated; Z79.899 Other long term (current) drug therapy; Z88.8 Allergy status to other drugs, medicaments and biological substances
CPT/HCPCS: 36415; 80053; 84443; 85025; 81003; 80306; 99285; S4990

== ENCOUNTER 2019-09-13 06:56 | Emergency (ER) | payer OTHER, MEDICARE ==
--- NOTE | 2019-09-13 07:41 | ED ---
General Adult HPI - General Chief complaint: Psychiatric Symptoms Stated complaint: Mental Health Time Seen by Provider: 09/13/19 07:15 Source: patient, RN notes reviewed Mode of arrival: ambulatory Limitations: no limitations - History of Present Illness Initial comments: Israel is a 39-year-old male with a past medical history of schizoaffective disorder, bipolar disorder. Patient presented to the emergency department and told triage he was here for EPS evaluation. However at this time patient is denying this. States he is here because it was cold out and he was waiting for the cafeteria to open. Patient has disorganized thought and speech. He denies suicidal ideation. Patient has no other complaints at this time including shortness of breath, chest pain, abdominal pain, nausea or vomiting, headache, or visual changes. - Related Data Home Medications Medication Instructions Recorded Confirmed Melatonin 5 mg PO HS 03/02/18 09/13/19 diphenhydrAMINE [Benadryl] 25 mg PO HS PRN 03/02/18 09/13/19 Vivitrol 380mg 380 mg IM Q28D 07/10/19 09/13/19 ARIPiprazole IM SYRINGE [Abilify 400 mg IM Q28D 09/13/19 09/13/19 Maintena Syringe] ARIPiprazole [Abilify] 20 mg PO DAILY 09/13/19 09/13/19 Acetaminophen Tab [Tylenol Tab] 325 mg PO Q4H PRN 09/13/19 09/13/19 Ibuprofen [Motrin] 600 mg PO Q8HR PRN 09/13/19 09/13/19 Omeprazole [PriLOSEC] 20 mg PO DAILY 09/13/19 09/13/19 busPIRone HCL 30 mg PO BID 09/13/19 09/13/19 Allergies Allergy/AdvReac Type Severity Reaction Status Date / Time ziprasidone AdvReac Muscle Verified 09/13/19 07:38 Rigidity Review of Systems ROS Statement: Those systems with pertinent positive or pertinent negative responses have been documented in the HPI. ROS Other: All systems not noted in ROS Statement are negative. Past Medical History Past Medical History: No Reported History Additional Past Medical History / Comment(s): Schizoaffective disorder, bipolar; History of Any Multi-Drug Resistant Organisms: None Reported Past Surgical History: No Surgical Hx Reported Additional Past Surgical History / Comment(s): UNABLE TO OBTAIN, PT NONRESPONSIVE Past Anesthesia/Blood Transfusion Reactions: No Reported Reaction Past Psychological History: Bipolar, Depression, PTSD, Schizoaffective Disorder Smoking Status: Current every day smoker Past Alcohol Use History: Abuse Past Drug Use History: Heroin, Marijuana, Opiates - Past Family History Father Additional Family Medical History / Comment(s): Father is alive at age 58 with no major medical problems. Mother Additional Family Medical History / Comment(s): Mother is alive in her early 60s with history of paranoid schizophrenia. Brother(s) Additional Family Medical History / Comment(s): He has 5 brothers and one is in long-term. He does not know their medical problems. Sister(s) Additional Family Medical History / Comment(s): Patient has 2 stepsisters and one adopted sister. He does not have any children. General Exam Limitations: no limitations General appearance: alert, in no apparent distress Head exam: Present: atraumatic, normocephalic, normal inspection Eye exam: Present: normal appearance, PERRL, EOMI. Absent: scleral icterus, conjunctival injection, periorbital swelling ENT exam: Present: normal exam, mucous membranes moist Neck exam: Present: normal inspection, full ROM. Absent: tenderness, meningismus, lymphadenopathy Respiratory exam: Present: normal lung sounds bilaterally. Absent: respiratory distress, wheezes, rales, rhonchi, stridor Cardiovascular Exam: Present: regular rate, normal rhythm, normal heart sounds. Absent: systolic murmur, diastolic murmur, rubs, gallop, clicks Neurological exam: Present: alert, oriented X3, CN II-XII intact, normal gait Course Vital Signs 09/13/19 07:07 Temperature 97.3 F L Pulse Rate 100 Respiratory 18 Rate Blood Pressure 127/86 O2 Sat by Pulse 99 Oximetry Medical Decision Making - Medical Decision Making Patient denying any suicidal thoughts. Speech is disorganized however this is patient's baseline. He was evaluated by EPS given psychiatric history although denies psychiatric complaints including hallucinations, they are recommending safety plan home. This was given to him. Patient requesting discharge. - Lab Data Lab Results 09/13/19 Range/Units 07:50 Urine Opiates Screen Not Detected (NotDetected) Ur Oxycodone Screen Not Detected (NotDetected) Urine Methadone Screen Not Detected (NotDetected) Ur Propoxyphene Screen Not Detected (NotDetected) Ur Barbiturates Screen Not Detected (NotDetected) U Tricyclic Antidepress Not Detected (NotDetected) Ur Phencyclidine Scrn Not Detected (NotDetected) Ur Amphetamines Screen Not Detected (NotDetected) U Methamphetamines Scrn Not Detected (NotDetected) U Benzodiazepines Scrn Not Detected (NotDetected) Urine Cocaine Screen Not Detected (NotDetected) U Marijuana (THC) Screen Detected H (NotDetected) Disposition Clinical Impression: History of bipolar disorder Disposition: HOME SELF-CARE Condition: Good Instructions (If sedation given, give patient instructions): Bipolar Disorder (ED) Additional Instructions: Please follow up with primary care in 1-2 days. Please return to the emergency department if you have any worsening symptoms. Is patient prescribed a controlled substance at d/c from ED?: No Referrals: Nonstaff,Physician [REFERRING] - 1-2 days Time of Disposition: 10:16
[2019-09-13 07:57] VITALS: TEMP 97.3
[2019-09-13 08:22] LABS: Amphetamine Screen,Urine Not Detected (NotDetected); Barbiturate Screen,Urine Not Detected (NotDetected); Benzodiazepines Screen,Urine Not Detected (NotDetected); Cocaine Screen,Urine Not Detected (NotDetected); Methadone Screen, Urine Not Detected (NotDetected); Opiate Screen,Urine Not Detected (NotDetected); Oxycodone Screen, Urine Not Detected (NotDetected); Phencyclidine Screen,Urine Not Detected (NotDetected); Tricyclic Antidepressant,Urine Not Detected (NotDetected); Urn Cannabinoid Scrn Detected (NotDetected)
[2019-09-13 10:20] VITALS: BP 139/82; PULSE 109; RESP 16
== END 2019-09-13 10:27 | disposition home or self-care (01) ==
LOC: EC 06:56
DX: Z00.8 Encounter for other general examination (principal); Z86.59 Personal history of other mental and behavioral disorders; F25.9 Schizoaffective disorder, unspecified; F17.200 Nicotine dependence, unspecified, uncomplicated; Z79.899 Other long term (current) drug therapy; Z88.8 Allergy status to other drugs, medicaments and biological substances
CPT/HCPCS: 80306; 82075; 99284